=== PATIENT | male | born 1965 | race Caucasian/White ===

== ENCOUNTER 2021-05-07 16:35 | Emergency (ER) | payer MEDICAID, SELFPAY ==
[2021-05-07 16:35] VITALS: BP 169/118; PULSE 120; RESP 18; TEMP 35.7; O2SAT 98; BMI 26.6
--- NOTE | 2021-05-07 16:40 | ED.RN ---
PT DECIDED HE DID NOT WANT TO BE SEEN BY DR AFTER BEING CHECKED IN. LWBS [id number]
== END 2021-05-07 16:40 | disposition left against medical advice (07) ==
LOC: ED 17:10
DX: R69 Illness, unspecified (principal); Z53.21 Procedure and treatment not carried out due to patient leaving prior to being seen by health care provider

== ENCOUNTER 2021-05-11 10:04 | Emergency (ER) | payer MEDICAID, SELFPAY ==
[2021-05-11 10:05] VITALS: BP 177/106; PULSE 91; RESP 18; TEMP 36.2; O2SAT 96; BMI 30.8
--- NOTE | 2021-05-11 10:41 | RAD_ITS ---
STUDY: X-RAY - ORBITS REASON FOR EXAM: Male, 56 years old. This study is being performed as a clearance examination for exclusion of orbital metal, prior to the performance of an MRI examination. TECHNIQUE: 2 view(s) of the orbits were obtained. COMPARISON: None. FINDINGS: Normal bilateral orbits without a metallic orbital foreign body. Normal visualized facial bones. Normal paranasal sinuses. The soft tissue structures are unremarkable. RAD/Orbits for Foreign Body IMPRESSION: No demonstrated metallic orbital foreign body. The patient is cleared for an MRI examination. Electronically Signed: Brandan Santacruz MD at 11:05 EDT Tel , Service support ,
--- NOTE | 2021-05-11 11:06 | EDS_ITS ---
HPI History of Present Illness Chief Complaint: Eye Problem Informant: patient Narrative Narrative: Patient is a 56-year-old male who presents to the emergency department for suspected foreign body in his right eye. He states he was using a grinding wheel 3 months ago whenever he felt like something flew up and hit him in the eye. He has had pain, discharge since then. He has seen an regional sales associate and was put on eyedrops. He states he has been taking doxy cycline orally as well. He was using eyedrops and it was helping until it started to make it feel like it is worse now. He still feels like there is something in his eye. He is denying significant pain at this time but his eye is red and it has been since 3 months ago. He denies any headache, neck stiffness or fever/chills. No other complaints. PFSH PFSH Home Medications ciprofloxacin HCl 500 mg PO BID #14 tablet 05/18/14 [Rx Last Taken Unknown] oxycodone-acetaminophen 1 - 2 tab PO Q4H PRN PRN #12 tab 05/18/14 [Rx Last Taken Unknown] promethazine 25 mg PO Q6H PRN PRN #10 tablet 05/18/14 [Rx Last Taken Unknown] tamsulosin 0.4 mg PO DAILY 14 Days capsule 05/18/14 [Rx Last Taken Unknown] Allergy/AdvReac Type Severity Reaction Status Date / Time No Known Allergies Allergy Verified 05/11/21 10:07 Social History Smoking Status: Former smoker ROS ROS ED Constitutional Constitutional ED: Denies chills or fever(s) Eyes Eyes: Reports other Details: Right photophobia ENT ENT ED: Denies epistaxis or rhinorrhea Cardiovascular Cardiovascular: Denies chest pain or palpitations Respiratory/Chest Respiratory/Chest: Denies cough or dyspnea Gastrointestinal Gastrointestinal: Denies abdominal pain, diarrhea, nausea or vomiting Musculoskeletal Musculoskeletal: Denies back pain or neck pain Neurologic Neurologic: Denies dizziness, headache(s) or weakness EXAM Physical Exam Const Vital Signs: 05/11/21 10:05 Temperature 97.1 F L Temperature Source Temporal Pulse Rate 91 Respiratory Rate 18 Blood Pressure 177/106 H Blood Pressure Mean 129 Pulse Ox 96 Oxygen Delivery Method Room Air Positive well nourished and well developed General Appearance ED: well developed and NAD HEENT Reports normocephalic, head/scalp atraumatic and moist mucous membranes Eyes PERRL and EOMs intact bilaterally Neck supple Chest Wall inspection of chest normal Resp normal respiratory effort and clear to auscultation bilaterally Auscultation: Negative for rales, rhonchi or wheezes Cardio regular rate, regular rhythm and no murmurs GI normal to inspection, nondistended, normoactive bowel sounds and non-tender Palpation: soft; Negative for guarding or rebound tenderness present Back/Spine no CVA tenderness Extremity normal to inspection General Extremety ED: Negative for edema or tenderness General Extremity: Negative for edema Neuro Sensorium / Orientation: alert Motor Exam: strength 5/5 throughout Psych mental status grossly normal Skin no rashes or lesions noted MDM MDM MDM Narrative Medical decision making narrative: Patient presents to the emergency department for right eye pain. This was going on that she noted all for the past 3 months and has seen regional sales associate for this already. Patient is requesting an x-ray of the eye because this is the only thing that has not been done yet. He states that he does not want a fluorescein exam and only wants the x-ray performed. He does understand that a corneal abrasion/ulcer can be missed if we do not stain his eye but he is adamant on just the x-ray. Patient's x-ray did not reveal any acute foreign body. He says that he was supposed to been on eyedrops but felt like his make it worse so he stopped this. He needs to call his regional sales associate today for repeat examination and evaluation. He understands and is agreeable to plan. Discharged home in stable condition. All questions answered. Patient wanted to get the Covid vaccination and screen positive for this. He will receive the [employer] prior to being discharged. Discharge Plan Triage Chief Complaint: Eye Problem ED Provider: Thomas Goetz Dx/Rx/DC Orders Clinical Impression: Eye pain Instructions: Corneal Injury Prescriptions: No Action oxycodone-acetaminophen 1 TABLET tablet 1 - 2 tab PO Q4H PRN PRN (Reason: Pain) Qty: 12 RF: 0 tamsulosin 0.4 MG capsule 0.4 mg PO DAILY 14 Days RF: 0 promethazine 25 MG tablet 25 mg PO Q6H PRN PRN (Reason: Nausea) Qty: 10 RF: 0 ciprofloxacin HCl 500 MG tablet 500 mg PO BID Qty: 14 RF: 0 Primary Care Provider: Care Physician,No Primary Referrals: Faisal Robin MD [STAFF PHYSICIAN] - As soon as possible Care Physician,No Primary [Primary Care Provider] - Disposition Disposition: Home, Self Care
--- NOTE | 2021-05-11 13:06 | ED.RN ---
rn to bedside to d/c patient. pt states he wants covid vaccine before leaving, as offered. Dr. Goetz notified at this time.
--- NOTE | 2021-05-11 14:04 | ED.RN ---
CALLED PHARMACY AGAIN ABOUT THE COVID VACCINE.
[2021-05-11] MEDS: COVID-19 VAC,AD26(JANSSEN)/PF 0.5 ML SYRINGE IM (14:17)
[2021-05-11 14:20] VITALS: BP 155/86; PULSE 72; RESP 16; O2SAT 97
--- NOTE | 2021-05-11 14:30 | ED.RN ---
PT OBSERVED FOR SHOT TIME FOR 15 MIN NO REACTION NOTED BY THIS RN. PT D/C
== END 2021-05-11 14:30 | disposition home or self-care (01) ==
PROVIDERS: Emergency Provider Emergency Medicine
DX: H57.11 Ocular pain, right eye (principal); Z87.891 Personal history of nicotine dependence
CPT/HCPCS: 70030; 91303; 99283

== ENCOUNTER 2025-01-23 17:57 | Inpatient (IN) | payer MEDICAID, SELFPAY ==
[2025-01-23] VITALS (16 sets, daily range): BP systolic 91–161; BP diastolic 67–107; PULSE 86–120; RESP 14–25; TEMP 36.6–37.1; O2SAT 23–100; BMI 25.2; BMI 25.3
[2025-01-23] MEDS: Aspirin 81 MG TAB.CHEW 324 MG PO (18:13)
[2025-01-23] MEDS: TICAGRELOR 90 MG TABLET 180 MG PO (18:13)
[2025-01-23] MEDS: Heparin Injection (Vial) 5,000 UNIT/ML VIAL 5000 UNIT IV (18:13)
--- NOTE | 2025-01-23 18:13 | EKG12_ITS ---
Test Reason : CHEST PRESSURE Blood Pressure : */* mmHG Vent. Rate : 99 BPM Atrial Rate : 99 BPM P-R Int : 160 ms QRS Dur : 86 ms QT Int : 334 ms P-R-T Axes : 59 30 -16 degrees QTcB Int : 428 ms Critical Test Result: STEMI Normal sinus rhythm ST elevation consider anterolateral injury or acute infarct ACUTE [place] / STEMI Abnormal ECG Confirmed by REMBERTO MAY, EMILY ([id number]), primer expeditor and drier JOSE PAUL ([id number]) on 01/28/2025 9:03:46 AM Referred By: Gómez Escobar Confirmed By: EMILY SR MD
--- NOTE | 2025-01-23 18:17 | EDS_ITS ---
HPI History of Present Illness Chief Complaint: Chest Pain Informant: patient Narrative Narrative: Presents with chest tightness 2 hours prior to arrival bilateral arm pain. Patient states he finished mowing the lawn and then ate food. He felt fine symptoms started at rest. No history of similar. Denies diabetes hypertension or hyperlipidemia. No history of heart disease. No heart caths in the past. Remote tobacco quit 5 years ago. Nausea vomiting at home states pain was 10 at home on arrival it was 5 out of 10. Denies any history of gastric ulcers. Denies any recent rectal bleeding. Prior similar symptoms: No PFSH PFSH Medical History Hepatitis C Home Medications ?Medication ?Instructions ?Recorded ?Last Taken ?Type NK 01/23/25 Unknown History Allergy/AdvReac Type Severity Reaction Status Date / Time No Known Allergies Allergy Verified 01/23/25 17:58 Family History Father CAD (coronary artery disease) Heart disease Hypertension Myocardial infarction Brother Myocardial infarction Hypertension Heart disease CAD (coronary artery disease) Mother No problems noted. Surgical History H/O skin graft History of cholecystectomy Social History household members: none Smoking Status: Former smoker how long ago did patient quit smoking: Quit ~ 5 yrs prior, smoked ~ 1/2 ppd since youth until quit. alcohol intake: former details: Notes previous intermittent EtOH use, not heavy, currently no drinking. substance use type: other details: Denies substance abuse but chart reported history of Hepatitis C. ROS ROS ED Constitutional Constitutional ED: Reports sweats; Denies chills or fever(s) ENT ENT ED: Denies sore throat Cardiovascular Cardiovascular: Reports chest pain; Denies leg edema, palpitations or racing heartbeat Respiratory/Chest Respiratory/Chest: Denies cough, dyspnea or dyspnea on exertion Gastrointestinal Gastrointestinal: Reports nausea and vomiting; Denies abdominal pain or diarrhea Genitourinary Genitourinary ED: Denies dysuria, hematuria or urinary frequency Musculoskeletal Musculoskeletal: Denies back pain, extremity pain or neck pain Integumentary Denies rash or wounds Neurologic Neurologic: Reports paresthesias; Denies headache(s) or weakness EXAM Physical Exam Const Vital Signs: 01/23/25 17:57 01/23/25 18:09 01/23/25 18:09 Temperature 98.7 F Temperature Source Oral Pulse Rate 102 H Respiratory Rate 18 17 Respiratory Effort Normal Respiratory Pattern Normal Blood Pressure 161/107 H 149/104 H Blood Pressure Mean 125 Pulse Ox 98 Oxygen Delivery Method Room Air 01/23/25 18:29 01/23/25 18:34 01/23/25 18:38 Temperature 98.8 F Temperature Source Pulse Rate 118 H 113 H Respiratory Rate 20 H 18 Respiratory Effort Respiratory Pattern Blood Pressure 147/107 H 147/107 H Blood Pressure Mean 120 120 Pulse Ox 98 100 Oxygen Delivery Method Room Air Room Air Positive well nourished and well developed General Appearance ED: well developed and NAD HEENT Reports moist mucous membranes normocephalic and atraumatic Eyes General Eye ED: Yes normal appearance of both eyes Neck full ROM Chest Wall Chest: Negative for tenderness Resp normal respiratory effort and normal air movement Effort and Inspection: symmetric chest movement; Negative for respiratory distress Cardio regular rhythm and no murmurs Rate: tachycardic Peripheral Pulses: pulses 2+ throughout GI normal to inspection, nondistended, normoactive bowel sounds and non-tender Palpation: Negative for guarding or rebound tenderness present Extremity normal to inspection General Extremety ED: Negative for edema or tenderness General Extremity: Negative for edema Neuro oriented x3 and no sensory deficits noted Sensorium / Orientation: awake and alert Skin no rashes or lesions noted and no wounds MDM MDM MDM Narrative Medical decision making narrative: Interventions / MDM: Differential diagnosis: STEMI, chest pain Diagnosis considered but do not suspect: N/A My EKG interpretation: Sinus rate of 99, ST elevation anterior lateral leads with reciprocal ST depressions in inferior leads. Imaging independently reviewed and interpreted by myself: 1 view chest x-ray: Ordered however not performed in the ED. External documents reviewed: N/A Test considered but not ordered:N/A ED course: EKG was given to me concerning STEMI. Patient was evaluated. Aspirin Brilinta heparin ordered. AP defibrillator pads were placed. Discussed immediately with STEMI floor and wall applier liquid Dr. Escobar. Images were sent to him of the EKG. Agrees with plan. Show Zofran fentanyl given for symptom control. Labs are ordered and pending. Chest x-ray ordered however not performed in the ED. Hospitalist Dr. Shukla was in the department seeing the patient in the same time. Patient taken to the [facility]. Patient will be admitted ICU after heart cath eterization. 1850: Creatinine returning at 0.88. Glucose 215. Troponin 39. Re-evaluation: stable Disposition discussed with patient/family/significant other: Patient Case discussed with consulting clinician: STEMI floor and wall applier liquid, hospitalist This note was generated with [employer] dictation software. It may contain incorrect words, spelling, and punctuation that were not noted in checking the note before signing. Lab Data Labs: Laboratory Results - last 24 hr 01/23/25 01/23/25 18:10 18:30 WBC 15.1 H RBC 5.92 Hgb 18.3 H* Hct 51.3 MCV 86.7 MCH 30.9 MCHC 35.7 RDW Std Deviation 39.5 RDW Coeff of Tree 12.6 Plt Count 217 MPV 9.3 Immature Gran % (Auto) 0.300 Neut % (Auto) 83.1 H Lymph % (Auto) 12.1 L [place] % (Auto) 3.5 Eos % (Auto) 0.5 Baso % (Auto) 0.5 Absolute Neuts (auto) 12.5 H Absolute Lymphs (auto) 1.83 Nucleated RBC % 0 PT 13.7 INR 1.0 APTT 31.3 Sodium 139 Potassium 4.0 Chloride 101 Carbon Dioxide 26.7 Anion Gap 12 BUN 17 Creatinine 0.88 Estim Creat Clear Calc 92.62 Est GFR (MDRD) Non-Af 100 BUN/Creatinine Ratio 19.8 Glucose 215 H Calcium 9.6 Magnesium 1.9 Troponin T High Sens 39 H Critical Care Time Critical Care Time: Yes Critical care time (excluding procedures): 30-74 minutes, Discussing w/Patient &/or Family/Black Off Worker, Discussing w/Consultants, Performing Direct Patient Care at Bedside and - (31 minutes) Discharge Plan Dx/Rx/DC Orders Clinical Impression: STEMI (ST elevation myocardial infarction), Chest pain, Nausea & vomiting Disposition Disposition: [facility] Discharge Date/Time: 01/23/25 18:53
[2025-01-23] MEDS: fentaNYL 100 MCG/2 ML Ampul 50 MCG IV (18:22)
[2025-01-23] MEDS: Ondansetron 4 MG/2 ML Vial IV ×2 (18:22→21:26)
--- NOTE | 2025-01-23 18:23 | HP.PCM.HOS_ITS ---
HPI - General General Date of Admission: 01/23/25 Date of Service: 01/23/25 Chief Complaint: Chest pain, N/V, LH/Dizziness, diaphoresis HPI Narrative The patient is a 59 y/o M w/ PMHx: BPH without obstructive pathology, PFSH Home Medications ?Medication ?Instructions ?Recorded ?Last Taken ?Type ciprofloxacin HCl 500 mg tablet 500 mg PO BID ##14 02/23 Unknown Rx oxycodone-acetaminophen 5 mg-325 1 - 2 tab PO Q4H PRN PRN Pain #12 05/18/14 Unknown Rx mg tablet tabs promethazine 25 mg tablet 25 mg PO Q6H PRN PRN Nausea ##10 05/18/14 Unknown Rx tamsulosin 0.4 mg capsule 0.4 mg PO DAILY 14 days 02/23 Unknown Rx Allergy/AdvReac Type Severity Reaction Status Date / Time No Known Allergies Allergy Verified 01/23/25 17:58 Social History Smoking Status: Former smoker Vital Signs Vital Signs Vital Signs: 01/23/25 17:57 01/23/25 18:09 01/23/25 18:09 Temperature 98.7 F Temperature Source Oral Pulse Rate 102 H Respiratory Rate 18 17 Respiratory Effort Normal Respiratory Pattern Normal Blood Pressure 161/107 H 149/104 H Blood Pressure Mean 125 Pulse Ox 98 Oxygen Delivery Method Room Air Weight Weight: 170 lb 14.4 oz Body Mass Index (BMI) 25.2 Results Lab / Micro Data 01/23/25 18:10 01/23/25 18:10
--- NOTE | 2025-01-23 18:23 | PCM.HP.STD ---
HPI - General General Date of Admission: 01/23/25 Date of Service: 01/23/25 Chief Complaint: Chest pain, N/V, LH/Dizziness, diaphoresis HPI Narrative The patient is a 59 y/o M w/ PMHx: Chart reported history of Hepatitis C (unclear etiology, denies history of substance abuse), BPH without obstructive pathology, Former tobacco use, Schizophrenia unclear type not on medication who presents to the [facility] ED on 01/23/25 with history of onset approximately 2 hours prior to arrival midsternal nonradiating chest discomfort described as a heaviness/pressure-like in sensation with associated nausea, bout of emesis, diaphoresis, dyspnea as well as lightheaded and dizziness initially 10 out of 10 in severity eventually prompting ED transition for evaluation and upon arrival noted and slightly decreased to 5 out of 10 in severity. Patient reported a family underlying cardiac history. He notes that when this happened he had just been sitting down to eat but prior to that he had been outside mowing on a riding mower. During evaluation repeat question for severity and patient reported his discomfort down to 3 out of 10 in severity. In the ED workup included T98.7, heart 102, BP 161/107, respiratory rate 18, 98% room air, pending CBC, coags, BMP, troponin, chest x-ray upon evaluation. In the ED EKG reviewed with replanter following STEMI alert initiation upon arrival. [facility] Medical History Schizophrenia Former tobacco use Hepatitis C Home Medications ?Medication ?Instructions ?Recorded ?Last Taken ?Type NK 01/23/25 Unknown History Allergy/AdvReac Type Severity Reaction Status Date / Time No Known Allergies Allergy Verified 01/23/25 17:58 Family History (Updated 01/23/25 @ 18:[address] Dalia Shukla MD) Father CAD (coronary artery disease) Heart disease Hypertension Myocardial infarction Brother Myocardial infarction Hypertension Heart disease CAD (coronary artery disease) Mother No problems noted. Surgical History History of tonsillectomy and adenoidectomy History of appendectomy H/O skin graft History of cholecystectomy Social History (Updated 01/23/25 @ 18:[address] Dalia Shukla MD) household members: none Smoking Status: Former smoker how long ago did patient quit smoking: Quit ~ 5 yrs prior, smoked ~ 1/2 ppd since youth until quit. alcohol intake: former details: Notes previous intermittent EtOH use, not heavy, currently no drinking. substance use type: other details: Denies substance abuse but chart reported history of Hepatitis C. ROS ROS Narrative Admission Review of Systems: CONSTITUTIONAL: No weight loss, fever, chills, + weakness or fatigue. HEENT: + Lightheadedness, dizziness. Eyes: No visual loss, blurred vision, double vision or yellow sclerae. Ears, Nose, Throat: No hearing loss, sneezing, congestion, runny nose or sore throat. SKIN: No rash or itching, lesions, wounds. CARDIOVASCULAR: + Chest pain, lightheadedness, dizziness. No palpitations, edema, orthopnea, syncopal events. RESPIRATORY: + Dyspnea. No cough or marked sputum, wheezing, hemoptysis. GASTROINTESTINAL: + Anorexia, nausea, vomiting. No diarrhea, abdominal pain, melena, BRBPR. GENITOURINARY: No dysuria, frequency, urgency or retention. NEUROLOGICAL: + Lightheadedness, dizziness. No headache, syncope, paralysis, ataxia, numbness or tingling in the extremities, focal weakness, change in bowel or bladder control, seizure. MUSCULOSKELETAL: + muscle, back pain, joint pain or stiffness. HEMATOLOGIC: No anemia, bleeding or bruising. LYMPHATICS: No enlarged nodes. No history of splenectomy. PSYCHIATRIC: + History of schizophrenia. ENDOCRINOLOGIC: No reports of sweating, cold or heat intolerance. No polyuria or polydipsia. ALLERGIES: No history of asthma, hives, eczema or rhinitis. Vital Signs Vital Signs Vital Signs: 01/23/25 17:57 01/23/25 18:09 01/23/25 18:09 Temperature 98.7 F Temperature Source Oral Pulse Rate 102 H Respiratory Rate 18 17 Respiratory Effort Normal Respiratory Pattern Normal Blood Pressure 161/107 H 149/104 H Blood Pressure Mean 125 Pulse Ox 98 Oxygen Delivery Method Room Air Weight Weight: 170 lb 14.4 oz Body Mass Index (BMI) 25.2 Physical Exam Narrative Physical Examination: General: Awake, alert, oriented x 3 and cooperative, seated upright in the ED bed, mildly tangential discussions but able to focus, currently following evaluation pain now down to 3 out of 10, midsternal pressure-like in sensation. Skin: Normal color, normal turgor, no icterus, no cyanosis except occasional stage ecchymoses, abrasion. HEENT: AT/NC, EOMI, PERRLA, mildly dry MM, endentulous, no carotid bruits or JVD noted. Lungs: Mildly diminished, greater bases, mildly increased respiratory rate but no distress, no rales, ronchi or wheezing. Heart: Mildly tachycardic with regular rhythm; no gallop, rub audible. Abdomen: Soft, NTTP, ND, distant normal BS, no markedly appreciated HSM. Extremities: No cyanosis, clubbing, or edema. Neurological: Patient awake, alert, oriented as noted, cognitive function suspect baseline intact; pupils equally reactive to light and accommodation, cranial nerves grossly normal, moving all 4 extremities, no focal deficits, strength moderately to severely global decreased given acute presentation. Psychiatric: Affect appears fatigued, notes chest discomfort is improving, no acute evidence of depressive or anxiety feelings but does have underlying schizophrenic diagnosis per family. Results Lab / Micro Data 01/23/25 18:10 01/23/25 18:10 Assessment & Plan Assessment/Plan (1) STEMI (ST elevation myocardial infarction): PLAN: Plan The patient is a 59 y/o M w/ PMHx: Chart reported history of Hepatitis C (unclear etiology, denies history of substance abuse), BPH without obstructive pathology, Former tobacco use, Schizophrenia unclear type not on medication who presents to the [facility] ED on 01/23/25 with history of onset approximately 2 hours prior to arrival midsternal nonradiating chest discomfort described as a heaviness/pressure-like in sensation with associated nausea, bout of emesis, diaphoresis, dyspnea as well as lightheaded and dizziness initially 10 out of 10 in severity eventually prompting ED transition for evaluation and upon arrival noted and slightly decreased to 5 out of 10 in severity. #1. Chest Pain w/ Acute STEMI: EKG in ED w/ anterolateral ST elevations, CXR and troponin pending upon evaluation. Will transition from the ED to cardiac catheterization lab given STEMI presentation and following this we will transition to the ICU. Will maintain on a monitored bed, continue serial cardiac enzymes and EKGs. Obtain magnesium level upon admission. Patient administered heparin load, Brilinta load and full-strength aspirin in the ED. Continue medical management w/ asa, Brilinta, high-dose statin w/ AM FLP. Will defer beta-jamie therapy/YOHANNES inhibitor decision to cardiology discretion. ECHO requested. Cardiology consulted as noted. #2. Elevated BP without hypertensive diagnosis: Patient with elevated BP upon arrival, denies history, previous trending with occasional point levels elevated, will defer decision of beta-jamie/YOHANNES inhibitor therapies to cardiology discretion, as needed IV hydralazine in the interim. #3. Schizophrenia, unclear type: Patient is not on any medication, denied history which was eventually obtained per his mother and father. Given that the patient is not necessarily harm to self this may be a long-term situation where he has not been on medication. Would benefit from follow-up and outpatient evaluation #4. Chart reported history hepatitis C: Unclear etiology, patient denying substance abuse, given schizophrenia certainly still could have had a substance abuse history remotely, will attempt to see if there are any labs previously denoting hepatitis C status. If not may require testing to assure appropriate follow-up. #5. BPH without obstructive pathology: Will continue Flomax regimen but clarifying if this is still ongoing as patient is unsure of his medications. #6. Former tobacco use: Encourage continued tobacco cessation. #7. DVT prophylaxis: Lovenox to begin in AM. #8. CODE status: Patient does not have healthcare palva turning or living will in place but notes his mother and father would be his medical decision makers if necessary. Discussed CODE status at length including difference between FULL code, DNR-CCA and DNR-CC status. Following discussions about the differences in these status, requested Full Code status. Charges/Coding Visit Charges Inpatient E&M: 44667 Init Hosp L3
[2025-01-23 18:31] LABS: Absolute Lymphocyte Count 1.83 X10^3/uL (0.83-4.51); Absolute Neutrophil Count 12.5 X10^3/uL (2.0-7.7); Basophil# 0.07 X10^3/uL; Basophil% 0.5 % (0-1); Eosinophil# 0.07 X10^3/uL; Eosinophils% 0.5 % (0-5); Hematocrit 51.3 % (40-54); Hemoglobin 18.3 g/dL (13.0-16.5); Lymphocyte # 1.83 X10^3/ul (0.83-4.51); Lymphocyte % 12.1 % (19-41); Mean Corp Hgb Conc 35.7 g/dL (32-36); Mean Corpuscular Hgb 30.9 pg (27.0-32.0); Mean Corpuscular Volume 86.7 fL (80-94); Mean Platelet Vol. 9.3 fl (6.2-12.0); Monocyte# 0.53 X10^3/uL; Monocyte% 3.5 % (0-10); NRBC Flagged by Analyzer 0 % (0-5); Neutrophil # 12.54 X10^3/uL (2.7-7.7); Neutrophil % 83.1 % (47-70); Platelet Count 217 K/mm3 (150-450); RBC Distribution Width CV 12.6 % (11.6-14.6); RBC Distribution Width SD 39.5 fl (35.1-43.9); Red Blood Count 5.92 M/mm3 (4.6-6.2)
[2025-01-23 18:47] LABS: Anion Gap 12 (5-15); BUN 17 mg/dL (4-19); BUN/Creat Ratio 19.8 RATIO (10-20); Calcium,Total 9.6 mg/dL (7.6-11.0); Carbon Dioxide 26.7 mmol/L (21.0-32.0); Chloride 101 mmol/L (98-108); Creatinine, Serum 0.88 mg/dL (0.70-1.20); EST Glomerular Filtration Rate 100 (>60); Estimated Creatinine Clearance 92.62 ml/min (50-250); Glucose 215 mg/dL (70-99); Sodium Level 139 mmol/L (133-145); Troponin T High Sensitivity 39 ng/L (<=22)
[2025-01-23 18:50] LABS: Prothrombin Time (Protime)PT. 13.7 SECONDS (11.7-14.9)
[2025-01-23 18:51] LABS: Partial Thromboplast Time 31.3 Seconds (24.1-36.2)
[2025-01-23 19:18] LABS: Magnesium 1.9 mg/dL (1.5-2.2)
[2025-01-23 19:21] LABS: White Blood Count 15.1 K/mm3 (4.4-11.0)
--- NOTE | 2025-01-23 20:08 | CON.PCM.CA_ITS ---
Assessment & Plan Assessment/Plan (1) STEMI (ST elevation myocardial infarction): QUALIFIERS: Involved coronary artery: LAD coronary artery Q ualified Code(s): I21.02 - ST elevation (STEMI) myocardial infarction involving left anterior descending coronary artery PLAN: Treated with drug-eluting stent to the LAD. Patient needs staged PCI of the RCA. He has tortuous LAD and RCA. We will keep him on aspirin, Brilinta, statin. His blood pressure is low and so we will hold off on YOHANNES inhibitors and beta-blockers at this time and will add as tolerated. Patient received 40 mg IV Lasix in the [facility]. He may need an additional dose in the morning. He does have an EF of around 30% by LV gram. At this time we will see if his blood pressure improves. He may end up requiring low-dose Levophed overnight if his blood pressure continues to remain low. HPI Consult Data Date of Consult: 01/23/25 HPI Narrative Reason for Consultation: STEMI HPI Narrative: ISAS YEH, is a 59 M who presents with chest pain. His EKG was indicative of anterior ST elevation SC and a STEMI alert was called. Patient was brought emergently to the cardiac [facility] and underwent coronary angiography which revealed 100% occlusion of the proximal LAD that was treated with thrombectomy and drug-eluting stent placement. Patient had high LVEDP and also was hypoxic on oxygen by nasal cannula. He was given 40 mg IV Lasix in the [facility]. He was given 2 boluses of Integrilin and was started on an Integrilin drip. He was noted to have hemoptysis and so the Integrilin drip has been stopped. His chest pain has improved. He is being admitted to the CCU for further management. [facility] Medical History Hepatitis C Home Medications ?Medication ?Instructions ?Recorded ?Last Taken ?Type NK 01/23/25 Unknown History Allergy/AdvReac Type Severity Reaction Status Date / Time No Known Allergies Allergy Verified 01/23/25 17:58 Family History Father CAD (coronary artery disease) Heart disease Hypertension Myocardial infarction Brother Myocardial infarction Hypertension Heart disease CAD (coronary artery disease) Mother No problems noted. Surgical History H/O skin graft History of cholecystectomy Social History household members: none Smoking Status: Former smoker how long ago did patient quit smoking: Quit ~ 5 yrs prior, smoked ~ 1/2 ppd since youth until quit. alcohol intake: former details: Notes previous intermittent EtOH use, not heavy, currently no drinking. substance use type: other details: Denies substance abuse but chart reported history of Hepatitis C. Physical Exam Const alert and oriented x3 HEENT normocephalic Eyes no scleral icterus Resp normal respiratory effort Cardio regular rate Skin no rashes or lesions noted Risk Stratification Risk Stratification Applicable: No Charges/Coding Visit Charges Inpatient E&M: 50162 Init Hosp L2 Objective Data Vital Signs: Vital Signs Temp Pulse Resp BP Pulse Ox O2 Del Method 98.8 F 113 H 18 147/107 H 100 Room Air 01/23/25 18:38 01/23/25 18:38 01/23/25 18:38 01/23/25 18:38 01/23/25 18:38 01/23/25 18:34 Oxygen Delivery Method Room Air Weight: 170 lb 14.4 oz Body Mass Index (BMI) 25.2 Lab / Micro Data 01/23/25 18:10 01/23/25 18:10 Labs: Laboratory Results - last 24 hr 01/23/25 18:10: WBC 15.1 H, RBC 5.92, Hgb 18.3 H*, Hct 51.3, MCV 86.7, MCH 30.9, MCHC 35.7, RDW Std Deviation 39.5, RDW Coeff of Tree 12.6, Plt Count 217, MPV 9.3, Immature Gran % (Auto) 0.300, Neut % (Auto) 83.1 H, Lymph % (Auto) 12.1 L, [place] % (Auto) 3.5, Eos % (Auto) 0.5, Baso % (Auto) 0.5, Absolute Neuts (auto) 12.5 H, Absolute Lymphs (auto) 1.83, Nucleated RBC % 0, PT 13.7, INR 1.0, APTT 31.3, Sodium 139, Potassium 4.0, Chloride 101, Carbon Dioxide 26.7, Anion Gap 12, BUN 17, Creatinine 0.88, Estim Creat Clear Calc 92.62, Est GFR (MDRD) Non-Af 100, BUN/Creatinine Ratio 19.8, Glucose 215 H, Calcium 9.6, Troponin T High Sens 39 H 01/23/25 18:30: Magnesium 1.9 Cardiology Labs/Tests 01/23/25 18:10: WBC 15.1 H, RBC 5.92, Hgb 18.3 H*, Hct 51.3, MCV 86.7, MCH 30.9, MCHC 35.7, Plt Count 217, MPV 9.3, Immature Gran % (Auto) 0.300, Neut % (Auto) 83.1 H, Lymph % (Auto) 12.1 L, [place] % (Auto) 3.5, Eos % (Auto) 0.5, Baso % (Auto) 0.5, Absolute Neuts (auto) 12.5 H, Nucleated RBC % 0, PT 13.7, INR 1.0, APTT 31.3, Sodium 139, Potassium 4.0, Chloride 101, Carbon Dioxide 26.7, Anion Gap 12, BUN 17, Creatinine 0.88, Est GFR (MDRD) Non-Af 100, BUN/Creatinine Ratio 19.8, Glucose 215 H, Calcium 9.6 01/23/25 18:30: Magnesium 1.9 Rhythm: EKG: ECHO: Stress Test: Cardiac Cath: PCI: CT Surgery: Holter monitor: EPS: PPM: CXR: Chest CT Scan:
--- NOTE | 2025-01-23 20:34 | EKG12_ITS ---
Test Reason : AM EKG Blood Pressure : */* mmHG Vent. Rate : 104 BPM Atrial Rate : 104 BPM P-R Int : 164 ms QRS Dur : 86 ms QT Int : 320 ms P-R-T Axes : 69 75 112 degrees QTcB Int : 420 ms Critical Test Result: STEMI Sinus tachycardia with frequent Premature ventricular complexes Anteroseptal infarct , possibly acute ACUTE [place] / STEMI Abnormal ECG Confirmed by REMBERTO MAY, EMILY ([id number]), metropolitan editor JOSE PAUL ([id number]) on 01/28/2025 9:35:48 AM Referred By: Gómez Escobar Confirmed By: EMILY SR MD
--- NOTE | 2025-01-23 20:34 | ECHOCS_ITS ---
Reason For Study Reason For Study: STEMI Procedure This was a 2D Doppler, Color Flow transthoracic echocardiogram. Contrast injection was performed. Exam performed portable in ICU/CCU. Left Ventricle Normal LV size. The estimated ejection fraction is 25-30 %. There is evidence of diastolic dysfunction. Hypokinesis of the apex and anterior wall. Right Ventricle Normal RV size. Normal systolic function. Atria The left and right atria are normal. No doppler evidence for ASD. Mitral Valve There is no mitral valve stenosis. No mitral valve insufficiency. Tricuspid Valve There is no tricuspid stenosis. Unable to estimate RV systolic pressure due to inadequate jet, pulmonary artery pressure probably normal. Aortic Valve Trisinus/trileaflet aortic valve. Aortic sclerosis, no stenosis. No aortic valve insufficiency. Pulmonic Valve There is no pulmonic valvular stenosis. No pulmonic valve insufficiency. Great Vessels Normal sized aortic root. Pericardium/Pleural No pericardial effusion. Medication Diluted definity 2ml given slow IV push to enhance endocardial definition. MMode/2D Measurements & Calculations LVIDd: 4.3 cm IVSd: 1.2 cm Ao root diam: 3.3 cm LVIDs: 2.7 cm LVPWd: 1.1 cm RVDd: 2.9 cm FS: 37.9 % LAV(MOD-bp): 34.4 ml LVAd ap4: 39.7 cm2 LVAd ap2: 36.0 cm2 LAV(MOD-bp) Indexed: 17.8 ml/m2 LVLd ap4: 9.6 cm LVLd ap2: 8.9 cm LAV(MOD-sp2): 42.4 ml EDV(MOD-sp4): 132.7 ml EDV(MOD-sp2): 121.2 ml LAV(MOD-sp4): 27.1 ml EDV(sp4-el): 139.7 ml EDV(sp2-el): 124.2 ml LVAs ap4: 28.4 cm2 LVAs ap2: 25.2 cm2 LVLs ap4: 8.2 cm LVLs ap2: 7.5 cm ESV(MOD-sp4): 79.3 ml ESV(MOD-sp2): 68.9 ml ESV(sp4-el): 82.8 ml ESV(sp2-el): 72.0 ml EF(MOD-sp4): 40.2 % EF(MOD-sp2): 43.1 % EF(sp4-el): 40.7 % SV(MOD-sp4): 53.4 ml SV(MOD-sp2): 52.3 ml SV(sp4-el): 56.9 ml SI(MOD-sp4): 27.6 ml/m2 SI(MOD-sp2): 27.1 ml/m2 LA A4 area: 12.2 cm2 LA dimension(2D): 3.9 cm RA A4 area: 10.6 cm2 TAPSE: 1.2 cm Time Measurements MV dec time: 0.18 sec Doppler Measurements & Calculations MV E max darrius: 78.1 cm/sec Lat Peak E' Darrius: 16.3 cm/sec Med Peak E' Darrius: 8.0 cm/sec MV A max darrius: 84.5 cm/sec E/E' lat: 4.8 E/E' med: 9.8 MV E/A: 0.92 MV V2 max: 80.9 cm/sec MV dec slope: 443.4 cm/sec2 Ao V2 max: 111.0 cm/sec MV max P.6 mmHg Ao max P.9 mmHg MV V2 mean: 54.0 cm/sec MV mean P.3 mmHg MV V2 VTI: 13.7 cm LV V1 max: 105.3 cm/sec PA V2 max: 88.3 cm/sec LV V1 max P.4 mmHg ECHO/Echo Complete W/ Contrast Interpretation Summary The estimated ejection fraction is 25-30 %. Hypokinesis of the apex and anterior wall There is evidence of diastolic dysfunction. Ordering Physician: Dalia Shukla Referring Physician: Gómez Escobar Performed By: Kyle Prasad, MIA
[2025-01-23] MEDS: TICAGRELOR 90 MG TABLET PO (21:10)
[2025-01-23] MEDS: 0.9% Normal Saline (1000mL) 1,000 ML 100 ML IV (21:10)
[2025-01-23] MEDS: Atorvastatin Calcium 80 MG Tablet PO (21:11)
[2025-01-23] MEDS: MELATONIN 3 MG TABLET PO (21:26)
[2025-01-23 21:51] LABS: Troponin T High Sens 2 HR 5050 ng/L (<=22)
[2025-01-24] VITALS (28 sets, daily range): BP systolic 90–124; BP diastolic 55–96; PULSE 21–112; RESP 14–24; TEMP 36.4–36.9; O2SAT 93–98; BMI 25.3
[2025-01-24 01:14] LABS: Troponin T High Sens 4 HR > 10000 ng/L (<=22)
[2025-01-24] MEDS: proCHLORPERazine 10 MG/2 ML Vial 5 MG IV (02:26)
[2025-01-24 05:32] LABS: Absolute Lymphocyte Count 1.29 X10^3/uL (0.83-4.51); Absolute Neutrophil Count 15.2 X10^3/uL (2.0-7.7); Basophil# 0.02 X10^3/uL; Basophil% 0.1 % (0-1); Eosinophil# 0.01 X10^3/uL; Eosinophils% 0.1 % (0-5); Hematocrit 44.2 % (40-54); Lymphocyte # 1.29 X10^3/ul (0.83-4.51); Lymphocyte % 7.4 % (19-41); Mean Corp Hgb Conc 36.2 g/dL (32-36); Mean Corpuscular Hgb 31.3 pg (27.0-32.0); Mean Corpuscular Volume 86.3 fL (80-94); Mean Platelet Vol. 9.1 fl (6.2-12.0); Monocyte% 4.6 % (0-10); NRBC Flagged by Analyzer 0 % (0-5); Neutrophil # 15.21 X10^3/uL (2.7-7.7); Neutrophil % 87.5 % (47-70); Platelet Count 209 K/mm3 (150-450); RBC Distribution Width CV 12.6 % (11.6-14.6); RBC Distribution Width SD 39.2 fl (35.1-43.9); Red Blood Count 5.12 M/mm3 (4.6-6.2); White Blood Count 17.4 K/mm3 (4.4-11.0)
[2025-01-24 05:49] LABS: ALB/GLOB Ratio 1.5 RATIO (0.9-2.4); AST(SGOT) 658 U/L (<=37); Alanine Aminotransfer ALT/SGPT 113 U/L (<=46); Albumin, Serum 3.7 g/dL (3.5-5.0); Alkaline Phosphatase 83 U/L (40-129); Anion Gap 12 (5-15); BUN 18 mg/dL (4-19); BUN/Creat Ratio 22.5 RATIO (10-20); Calcium,Total 8.8 mg/dL (7.6-11.0); Carbon Dioxide 22.7 mmol/L (21.0-32.0); Chloride 106 mmol/L (98-108); Cholesterol 166 mg/dL (<=200); Creatinine, Serum 0.82 mg/dL (0.70-1.20); EST Glomerular Filtration Rate 103 (>60); Estimated Creatinine Clearance 99.39 ml/min (50-250); Globulin 2.5 g/dL (2.2-4.2); Glucose 199 mg/dL (70-99); High Density Lipoprotein 48 mg/dL; Low Density Lipoprotein Calc. 100 mg/dL; Potassium 3.9 mmol/L (3.3-5.1); Protein, Total 6.2 g/dL (5.9-8.4); Sodium Level 141 mmol/L (133-145); Total Bilirubin 1.01 mg/dL (0.00-1.30); Triglycerides 92 mg/dL; Very Low Density Lipoprotein 18 mg/dL (5-40); cholesterol:hdl ratio screen 3.47
--- NOTE | 2025-01-24 07:30 | PCM.PN.HOSP ---
Reason for Visit Reason for Visit: Diagnoses ST elevation (STEMI) myocardial infarction involving left anterior descending coronary artery (01/23/25) ST elevation (STEMI) myocardial infarction of unspecified site (01/23/25) Objective Data Objective Data Vital Signs: Vital Signs Temp Pulse Resp BP Pulse Ox O2 Del Method 98.4 F 97 16 100/73 96 Room Air 01/24/25 00:00 01/24/25 07:00 01/24/25 07:00 01/24/25 07:00 01/24/25 07:00 01/24/25 07:00 Oxygen Delivery Method Room Air Weight: 171 lb 8.314 oz Body Mass Index (BMI) 25.3 Intake & Output: Intake and Output for Last 24 Hours 01/22/25 01/23/25 01/24/25 23:59 23:59 23:59 Intake Total 120 / 120 Output Total 1300 / 1750 450 / 450 Balance -1300 / -1750 -330 / -330 Lab / Micro Data 01/24/25 05:17 01/24/25 05:17 Labs: Laboratory Results - last 24 hr 01/23/25 18:10: WBC 15.1 H, RBC 5.92, Hgb 18.3 H*, Hct 51.3, MCV 86.7, MCH 30.9, MCHC 35.7, RDW Std Deviation 39.5, RDW Coeff of Tree 12.6, Plt Count 217, MPV 9.3, Immature Gran % (Auto) 0.300, Neut % (Auto) 83.1 H, Lymph % (Auto) 12.1 L, [place] % (Auto) 3.5, Eos % (Auto) 0.5, Baso % (Auto) 0.5, Absolute Neuts (auto) 12.5 H, Absolute Lymphs (auto) 1.83, Nucleated RBC % 0, PT 13.7, INR 1.0, APTT 31.3, Sodium 139, Potassium 4.0, Chloride 101, Carbon Dioxide 26.7, Anion Gap 12, BUN 17, Creatinine 0.88, Estim Creat Clear Calc 92.62, Est GFR (MDRD) Non-Af 100, BUN/Creatinine Ratio 19.8, Glucose 215 H, Calcium 9.6, Troponin T High Sens 39 H 01/23/25 18:30: Magnesium 1.9 01/23/25 20:40: Troponin T Hi Sens 2 Hr 5050 H* 01/24/25 00:31: Troponin T Hi Sens 4Hr > 31152 H* 01/24/25 05:17: WBC 17.4 H, RBC 5.12, Hgb 16.0, Hct 44.2, MCV 86.3, MCH 31.3, MCHC 36.2 H, RDW Std Deviation 39.2, RDW Coeff of Tree 12.6, Plt Count 209, MPV 9.1, Immature Gran % (Auto) 0.300, Neut % (Auto) 87.5 H, Lymph % (Auto) 7.4 L, [place] % (Auto) 4.6, Eos % (Auto) 0.1, Baso % (Auto) 0.1, Absolute Neuts (auto) 15.2 H, Absolute Lymphs (auto) 1.29, Nucleated RBC % 0, Sodium 141, Potassium 3.9, Chloride 106, Carbon Dioxide 22.7, Anion Gap 12, BUN 18, Creatinine 0.82, Estim Creat Clear Calc 99.39, Est GFR (MDRD) Non-Af 103, BUN/Creatinine Ratio 22.5 H, Glucose 199 H, Calcium 8.8, Total Bilirubin 1.01, AST 658 H, ALT 113 H, Alkaline Phosphatase 83, Total Protein 6.2, Albumin 3.7, Globulin 2.5, Albumin/Globulin Ratio 1.5, Triglycerides 92, Cholesterol 166, LDL Cholesterol, Calc 100, VLDL Cholesterol 18, HDL Cholesterol 48, Cholesterol/HDL Ratio 3.47 Physical Exam Narrative Seen and examined. Patient denies any prior history of [place]. He said he used to take a lot of sugar in oatmeal and felt pain over bilateral feet and lower legs then he decreased his sugar intake. Patient's father has history of CAD/[place]. Twelve-lead EKG reviewed. 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 BMI 25.3 kg/m? HEENT: Atraumatic, PERRLA, EOMI, Normocephalic. Oral: No Gingival or Mucosal Lesions/ Ulcerations Neck: Supple, No JVD, Negative Carotid Bruits Chest wall/Lungs: Air entry equal in bilateral lung bases. No crepitation/rhonchi Cardiovascular: Regular rate and rhythm, Normal S1,S2, No M/G/R Abdomen: Bowel Sounds Present, Soft, Non Tender, Non-Distended : No dysuria. No renal angle tenderness. No suprapubic tenderness. Extremities: No edema, Capillary Refill Less than 3 Seconds Skin: No rashes, No breakdown Musculoskeletal: No Tenderness to Palpation of Joints or Extremities. ROM intact Neurological: Cranial nerves II-XII grossly intact, DTR 2+/4. No acute focal neurological deficit. Psych/Mental Status: Flat Assessment & Plan Assessment/Plan (1) STEMI (ST elevation myocardial infarction): QUALIFIERS: Involved coronary artery: LAD coronary artery Qualified Code(s): I21.02 - ST elevation (STEMI) myocardial infarction involving left anterior descending coronary artery PLAN: Plan The patient is a 59 y/o M admitted with chest tightness/pressure 1-2 hours prior to arrival with bilateral arm pain. This started after he finished moving the leg and then he ate the food. Patient had associated symptoms nausea vomiting, diaphoresis and dyspnea 1. Anterolateral STEMI: First EKG in ED shows NSR, ST elevation V2-V6, [address] depression in inferior leads consistent with anterolateral wall STEMI. On environmental monitoring specialist patient has multiple PVCs and short run of NSVT. Patient had PCI/LOLIS to LAD and needs staged PCI of RCA. # Tortuous LAD and RCA. Continue aspirin, Brilinta, high intensity statin. BP low therefore hold YOHANNES/ARB and beta-jamie. EF about 30% by LV gram. BP systolic 100, heart rate 90s. Fasting profile shows LDL 100. TSH and A1c ordered Start low-dose metoprolol succinate 12.5 mg daily as patient having multiple PVCs and short run of NSVT. #2. Elevated BP without hypertensive diagnosis: BP on lower side. Monitor and if BP permits low-dose YOHANNES/ARB. #3. Schizophrenia, unclear type: Exact classification of his schizophrenia unclear. Will need follow-up with psychiatrist as an outpatient. 4. Unclear history of hepatitis C: Will need outpatient follow-up and management #5. BPH without obstructive pathology:continue Flomax regimen but clarifying if this is still ongoing as patient is unsure of his medications. #6. Former tobacco use: Patient quit smoking 5 years ago. Smoked half pack per day since youth. #7. DVT prophylaxis: Lovenox to start from 24 hours of cardiac cath at 6 PM today. Discontinue if platelet count drops less than 50,000 or hemoglobin less than 8 g% #8. CODE status: Full code Charges/Coding Visit Charges Inpatient E&M: 08461 Init Hosp L3
--- NOTE | 2025-01-24 07:50 | CRPHASE1_ITS ---
Patient Communication Patient Information PHII Cardiac Rehab Discussed with Patient:: Yes Guide to Cardiac Rehab Given to Patient:: Yes Cardiac Rehab Facility Choice List Given to Patient:: Yes Communication to Cardiac Rehab Choice Program [facility] CR PHII:: Communication Given to CR Anesthesiologist Attending:: Gómez Escobar Phase II Cardiac Rehab:: Yes Sessions:: 36 sessions - 3 days/wk, 12 weeks Cardiac Rehabilitation Info Program Information Cardiac Rehabilitation Program Information: Cardiac Rehab The cardiac rehab team at [facility] consists of highly skilled exercise physiologists, nurses, respiratory therapists and physicians working together with you. Our purpose is to help you have a full recovery and achieve the goals you set for yourself. Over the years many of our patients have returned to activities they assumed they would never do again! We can help restore your confidence and motivation to make lifestyle changes that can have a significant impact on your health and quality of life! We can help answer questions and concerns you may have about exercise, lifestyle, medications, diet, stress and anxiety which are common following a hospitalization. WE monitor ECG and vital signs during exercise and discuss your progress with you and report to your physician(s). Cardiac Rehab is proven to help reduce readmissions, improve functional capacity and lower recurrence of problems with your heart. Our Cardiac Rehab program is Certified by the [place] [employer] Pulmonary [employer] (AACVPR) and Accredited by the [place] [employer] through our [facility]. You can contact us at . We invite you to call us with your questions or to get started in our program. If you have other questions or concerns be sure to ask your physician/provider during your follow-up visit. WE look forward to seeing you!
--- NOTE | 2025-01-24 07:50 | CRPH1.INSTRU ---
General Education Discussed with Patient CAD and cardiac anatomy and function:: Patient communicates acknowledgment Explanation of diagnoses and procedures:: Patient communicates acknowledgment Sign/Symptoms of CO:: Patient communicates acknowledgment Antiplatelet therapy: Patient communicates acknowledgment Proper use of NTG-SL: Patient communicates acknowledgment Emergency procedures and activation of EMS: Patient communicates acknowledgment Compliance of all prescribed medications: Patient communicates acknowledgment Smoking Risk Factors Patient Nicotine/Smoking Risk Factors Are:: Non-smoker Recommendations Recommendations Include:: Previous smoker; encourage continued cessation Response Code Nicotine/Smoking Response Code:: Patient communicates acknowledgment Dyslipidemia Risk Factors Patient Dyslipidemia Risk Factors Are:: Total Cholesterol, Triglycerides, HDL and LDL Recommendations Recommendations Include:: Lipid profile provided Response Code Dyslipidemia Response Code:: Patient communicates acknowledgment Overweight/Obesity Risk Factors Patient Overweight/Obesity Risk Factors Are:: BMI Normal [18-25 & < 65 years old] Recommendations Recommendations Include:: Weight loss of 5-10%, Reduced calorie diet and Exercise 5-7 times/week Response Code Overweight/Obesity:: Patient communicates acknowledgment Hypertension Risk Factors Patient Hypertension Risk Factors Are:: No documented hx of HTN Diabetes Risk Factors Patient Diabetes Risk Factors Are:: No documented hx of diabetes Metabolic Syndrome Risk Factors Patient Metabolic Syndrome Risk Factors Are [3 of 5]:: Fasting blood sugar > 100 mg/dL Recommendations Recommendations Include:: Encouraged follow-up with Primary Care Physician Response Code Metabolic Syndrome Response Code:: Patient communicates acknowledgment Sedentary Risk Factors Patient Sedentary Risk Factors Are:: Lack of regular exercise Recommendations Recommendations Include:: Aerobic exercise 5-7 times/week for 20-30 minutes continuously, Benefits of regular exercise, Discussed home walking program and Monitored Outpatient Cardiac Rehab Response Code Sedentary Response Code:: Patient communicates acknowledgment Stress Recommendations Recommendations Include:: Identification of stressors, and assessment of coping skills and Stress management techniques Response Code Stress Response Code:: Patient communicates acknowledgment
--- NOTE | 2025-01-24 07:59 | ECQM.STEMI ---
STEMI STEMI ED Door Time / Other REG STEMI EKG Time (1) STEMI (ST elevation myocardial infarction): Acute 01/23/25 17:57 Balloon/Aspiration Date-Time Date of Balloon/Aspiration:: 01/23/25 Time of Balloon/Aspiration:: 19:24
[2025-01-24] MEDS: TICAGRELOR 90 MG TABLET PO ×2 (09:39→21:08)
[2025-01-24] MEDS: Tamsulosin HCl 0.4 MG Capsule PO (09:39)
[2025-01-24] MEDS: Aspirin E.C. 81 MG Tablet PO (09:39)
[2025-01-24] MEDS: Metoprolol(XL)Succ 25 MG Tablet 12.5 MG PO (09:40)
--- NOTE | 2025-01-24 09:49 | CASEMGMT ---
NICOLAS VAZQUEZ Assessment Face to Face with patient for initial transition planning/care coordination assessment. NICOLAS VAZQUEZ introduced self and role at [facility], pt voices understanding. Pt is A&Ox4 and is resting comfortably in bed and is calm. Care providers, pharmacy, and demographics verified. Admitting dx: STEMI LACE Strata: 1 PCP: No PCP. Provider list given and encouraged to get established [facility] Specialists: Pt denies. Pt states that he does not see a Psychiatrist or pageant director currently. Resources provided. Preferred Pharmacy: [facility] @ the time of DC. Follow for anticoag Rx Insurance: [employer]Y [employer] Prescription Benefit: Yes LNOK: Jazmine and Simone (Mother and Father) Living Arrangements: Pt lives alone in a single story home with a flat entrance ADLs/IADLs: Pt states that he is entirely independent Transportation: Pt states that he recently lost his license and that his mom or dad can drive him. Denies concerns DME: Denies HHC/SNF: Denies Pt?s goal: Home Plan: Home, follow for anticoag. Pt denies any further DC needs and states that he feels safe returning home alone once medically ready. Carmenza Echevarria RN, CM
[2025-01-24 09:53] LABS: Hemoglobin A1c 6.7 % (<=5.6)
--- NOTE | 2025-01-24 10:00 | EKG12_ITS ---
Test Reason : STEMI Blood Pressure : */* mmHG Vent. Rate : 86 BPM Atrial Rate : 86 BPM P-R Int : 172 ms QRS Dur : 86 ms QT Int : 352 ms P-R-T Axes : 63 73 78 degrees QTcB Int : 421 ms Normal sinus rhythm Septal infarct , age undetermined Abnormal ECG When compared with ECG of 23-Jan-2025 18:06, MANUAL COMPARISON REQUIRED DATA IS UNCONFIRMED Confirmed by REMBERTO MAY, EMILY ([id number]), editor school photograph JOSE PAUL ([id number]) on 01/28/2025 9:36:24 AM Referred By: Gómez Escobar Confirmed By: EMILY SR MD
--- NOTE | 2025-01-24 12:41 | PCM.PN.CARD ---
Subjective Subjective Patient is resting comfortably Objective Data Vital Signs: Vital Signs Temp Pulse Resp BP Pulse Ox O2 Del Method 98.4 F 91 22 H 110/76 94 Room Air 01/24/25 00:00 01/24/25 10:00 01/24/25 10:00 01/24/25 10:00 01/24/25 10:00 01/24/25 10:00 Oxygen Delivery Method Room Air Weight: 171 lb 8.314 oz Body Mass Index (BMI) 25.3 Intake & Output: Intake and Output for Last 24 Hours 01/22/25 01/23/25 01/24/25 23:59 23:59 23:59 Intake Total 1120 / 1120 Output Total 1300 / 1750 450 / 450 Balance -1300 / -1750 670 / 670 Lab / Micro Data 01/24/25 05:17 01/24/25 05:17 Labs: Laboratory Results - last 24 hr 01/23/25 18:10: WBC 15.1 H, RBC 5.92, Hgb 18.3 H*, Hct 51.3, MCV 86.7, MCH 30.9, MCHC 35.7, RDW Std Deviation 39.5, RDW Coeff of Tree 12.6, Plt Count 217, MPV 9.3, Immature Gran % (Auto) 0.300, Neut % (Auto) 83.1 H, Lymph % (Auto) 12.1 L, [place] % (Auto) 3.5, Eos % (Auto) 0.5, Baso % (Auto) 0.5, Absolute Neuts (auto) 12.5 H, Absolute Lymphs (auto) 1.83, Nucleated RBC % 0, PT 13.7, INR 1.0, APTT 31.3, Sodium 139, Potassium 4.0, Chloride 101, Carbon Dioxide 26.7, Anion Gap 12, BUN 17, Creatinine 0.88, Estim Creat Clear Calc 92.62, Est GFR (MDRD) Non-Af 100, BUN/Creatinine Ratio 19.8, Glucose 215 H, Calcium 9.6, Troponin T High Sens 39 H 01/23/25 18:30: Magnesium 1.9 01/23/25 20:40: Troponin T Hi Sens 2 Hr 5050 H* 01/24/25 00:31: Troponin T Hi Sens 4Hr > 53116 H* 01/24/25 05:17: WBC 17.4 H, RBC 5.12, Hgb 16.0, Hct 44.2, MCV 86.3, MCH 31.3, MCHC 36.2 H, RDW Std Deviation 39.2, RDW Coeff of Tree 12.6, Plt Count 209, MPV 9.1, Immature Gran % (Auto) 0.300, Neut % (Auto) 87.5 H, Lymph % (Auto) 7.4 L, [place] % (Auto) 4.6, Eos % (Auto) 0.1, Baso % (Auto) 0.1, Absolute Neuts (auto) 15.2 H, Absolute Lymphs (auto) 1.29, Nucleated RBC % 0, Sodium 141, Potassium 3.9, Chloride 106, Carbon Dioxide 22.7, Anion Gap 12, BUN 18, Creatinine 0.82, Estim Creat Clear Calc 99.39, Est GFR (MDRD) Non-Af 103, BUN/Creatinine Ratio 22.5 H, Glucose 199 H, Hemoglobin A1c 6.7 H, Calcium 8.8, Total Bilirubin 1.01, AST 658 H, ALT 113 H, Alkaline Phosphatase 83, Total Protein 6.2, Albumin 3.7, Globulin 2.5, Albumin/Globulin Ratio 1.5, Triglycerides 92, Cholesterol 166, LDL Cholesterol, Calc 100, VLDL Cholesterol 18, HDL Cholesterol 48, Cholesterol/HDL Ratio 3.47, TSH 1.620 Cardiology Labs/Tests 01/23/25 18:10: WBC 15.1 H, RBC 5.92, Hgb 18.3 H*, Hct 51.3, MCV 86.7, MCH 30.9, MCHC 35.7, Plt Count 217, MPV 9.3, Immature Gran % (Auto) 0.300, Neut % (Auto) 83.1 H, Lymph % (Auto) 12.1 L, [place] % (Auto) 3.5, Eos % (Auto) 0.5, Baso % (Auto) 0.5, Absolute Neuts (auto) 12.5 H, Nucleated RBC % 0, PT 13.7, INR 1.0, APTT 31.3, Sodium 139, Potassium 4.0, Chloride 101, Carbon Dioxide 26.7, Anion Gap 12, BUN 17, Creatinine 0.88, Est GFR (MDRD) Non-Af 100, BUN/Creatinine Ratio 19.8, Glucose 215 H, Calcium 9.6 01/23/25 18:30: Magnesium 1.9 01/24/25 05:17: WBC 17.4 H, RBC 5.12, Hgb 16.0, Hct 44.2, MCV 86.3, MCH 31.3, MCHC 36.2 H, Plt Count 209, MPV 9.1, Immature Gran % (Auto) 0.300, Neut % (Auto) 87.5 H, Lymph % (Auto) 7.4 L, [place] % (Auto) 4.6, Eos % (Auto) 0.1, Baso % (Auto) 0.1, Absolute Neuts (auto) 15.2 H, Nucleated RBC % 0, Sodium 141, Potassium 3.9, Chloride 106, Carbon Dioxide 22.7, Anion Gap 12, BUN 18, Creatinine 0.82, Est GFR (MDRD) Non-Af 103, BUN/Creatinine Ratio 22.5 H, Glucose 199 H, Hemoglobin A1c 6.7 H, Calcium 8.8, Total Bilirubin 1.01, Triglycerides 92, Cholesterol 166, VLDL Cholesterol 18, HDL Cholesterol 48, Cholesterol/HDL Ratio 3.47 Rhythm: EKG: ECHO: Stress Test: Cardiac Cath: PCI: CT Surgery: Holter monitor: EPS: PPM: CXR: Chest CT Scan: Physical Exam Const no apparent distress HEENT normocephalic Resp normal respiratory effort Assessment & Plan Assessment/Plan (1) STEMI (ST elevation myocardial infarction): QUALIFIERS: Involved coronary artery: LAD coronary artery Qualified Code(s): I21.02 - ST elevation (STEMI) myocardial infarction involving left anterior descending coronary artery PLAN: Treated with drug-eluting stent to the LAD. Patient needs staged PCI of the RCA. He has tortuous LAD and RCA. We will keep him on aspirin, Brilinta, statin. Agree with adding low-dose beta-jamie. Low-dose YOHANNES inhibitor can be added if tolerated well blood pressure. Not on YOHANNES inhibitor yet because of borderline blood pressure.
[2025-01-24] MEDS: Enoxaparin 40 MG/0.4 ML Syringe SC (17:36)
[2025-01-24] MEDS: Atorvastatin Calcium 80 MG Tablet PO (21:08)
[2025-01-24] MEDS: MELATONIN 3 MG TABLET PO (21:17)
[2025-01-25] VITALS (17 sets, daily range): BP systolic 86–111; BP diastolic 57–79; PULSE 74–104; RESP 12–24; TEMP 36.6–37.1; O2SAT 93–98; BMI 25.8
[2025-01-25] MEDS: Ondansetron 4 MG/2 ML Vial IV (04:44)
[2025-01-25 05:09] LABS: Absolute Lymphocyte Count 2.99 X10^3/uL (0.83-4.51); Absolute Neutrophil Count 14.3 X10^3/uL (2.0-7.7); Basophil# 0.06 X10^3/uL; Basophil% 0.3 % (0-1); Eosinophil# 0.06 X10^3/uL; Eosinophils% 0.3 % (0-5); Hematocrit 41.7 % (40-54); Hemoglobin 15.2 g/dL (13.0-16.5); Lymphocyte # 2.99 X10^3/ul (0.83-4.51); Lymphocyte % 15.8 % (19-41); Mean Corp Hgb Conc 36.5 g/dL (32-36); Mean Corpuscular Hgb 31.3 pg (27.0-32.0); Mean Platelet Vol. 9.3 fl (6.2-12.0); Monocyte# 1.42 X10^3/uL; Monocyte% 7.5 % (0-10); NRBC Flagged by Analyzer 0 % (0-5); Neutrophil # 14.33 X10^3/uL (2.7-7.7); Neutrophil % 75.7 % (47-70); Platelet Count 216 K/mm3 (150-450); RBC Distribution Width CV 12.3 % (11.6-14.6); RBC Distribution Width SD 38.5 fl (35.1-43.9); Red Blood Count 4.85 M/mm3 (4.6-6.2); White Blood Count 18.9 K/mm3 (4.4-11.0)
[2025-01-25 05:23] LABS: Anion Gap 11 (5-15); BUN 25 mg/dL (4-19); BUN/Creat Ratio 31.5 RATIO (10-20); Calcium,Total 8.6 mg/dL (7.6-11.0); Chloride 103 mmol/L (98-108); EST Glomerular Filtration Rate 103 (>60); Estimated Creatinine Clearance 101.88 ml/min (50-250); Glucose 154 mg/dL (70-99); Potassium 3.4 mmol/L (3.3-5.1); Sodium Level 137 mmol/L (133-145)
--- NOTE | 2025-01-25 10:00 | EKG12_ITS ---
Test Reason : AM EKG Blood Pressure : */* mmHG Vent. Rate : 74 BPM Atrial Rate : 74 BPM P-R Int : 146 ms QRS Dur : 88 ms QT Int : 416 ms P-R-T Axes : 51 70 116 degrees QTcB Int : 461 ms Normal sinus rhythm ST & T wave abnormality, consider anterior ischemia Prolonged QT Abnormal ECG When compared with ECG of 25-Jan-2025 05:13, MANUAL COMPARISON REQUIRED DATA IS UNCONFIRMED Confirmed by REMBERTO MAY, EMILY ([id number]), editor in chief JOSE PAUL ([id number]) on 01/28/2025 9:43:02 AM Referred By: Góemz Escobar Confirmed By: EMILY SR MD
[2025-01-25] MEDS: Metoprolol(XL)Succ 25 MG Tablet 12.5 MG PO (11:17)
[2025-01-25] MEDS: Tamsulosin HCl 0.4 MG Capsule PO (11:17)
[2025-01-25] MEDS: TICAGRELOR 90 MG TABLET PO (11:18)
[2025-01-25] MEDS: Aspirin E.C. 81 MG Tablet PO (11:18)
--- NOTE | 2025-01-25 12:23 | PN.CARD_ITS ---
Subjective Subjective Patient seen and evaluated. Doing well. No complaints. Objective Data Vital Signs: Vital Signs Temp Pulse Resp BP Pulse Ox O2 Del Method 97.8 F 104 H 15 104/64 95 Room Air 01/25/25 00:00 01/25/25 11:17 01/25/25 07:00 01/25/25 11:17 01/25/25 07:00 01/25/25 07:00 Oxygen Delivery Method Room Air Weight: 174 lb 9.698 oz Body Mass Index (BMI) 25.8 Intake & Output: Intake and Output for Last 24 Hours 01/23/25 01/24/25 01/25/25 23:59 23:59 23:59 Intake Total 1360 / 1360 240 / 240 Output Total 1300 / 1750 950 / 950 Balance -1300 / -1750 410 / 410 240 / 240 Lab / Micro Data 01/25/25 04:36 01/25/25 04:36 Labs: Laboratory Results - last 24 hr 01/25/25 04:36: WBC 18.9 H, RBC 4.85, Hgb 15.2, Hct 41.7, MCV 86.0, MCH 31.3, M CHC 36.5 H, RDW Std Deviation 38.5, RDW Coeff of Tree 12.3, Plt Count 216, MPV 9.3, Immature Gran % (Auto) 0.400, Neut % (Auto) 75.7 H, Lymph % (Auto) 15.8 L, [place] % (Auto) 7.5, Eos % (Auto) 0.3, Baso % (Auto) 0.3, Absolute Neuts (auto) 14.3 H, Absolute Lymphs (auto) 2.99, Nucleated RBC % 0, Sodium 137, Potassium 3.4, Chloride 103, Carbon Dioxide 24.0, Anion Gap 11, BUN 25 H, Creatinine 0.80, Estim Creat Clear Calc 101.88, Est GFR (MDRD) Non-Af 103, BUN/Creatinine Ratio 31.5 H, Glucose 154 H, Calcium 8.6 Cardiology Labs/Tests 01/25/25 04:36: WBC 18.9 H, RBC 4.85, Hgb 15.2, Hct 41.7, MCV 86.0, MCH 31.3, M CHC 36.5 H, Plt Count 216, MPV 9.3, Immature Gran % (Auto) 0.400, Neut % (Auto) 75.7 H, Lymph % (Auto) 15.8 L, [place] % (Auto) 7.5, Eos % (Auto) 0.3, Baso % (Auto) 0.3, Absolute Neuts (auto) 14.3 H, Nucleated RBC % 0, Sodium 137, Potassium 3.4, Chloride 103, Carbon Dioxide 24.0, Anion Gap 11, BUN 25 H, Creatinine 0.80, Est GFR (MDRD) Non-Af 103, BUN/Creatinine Ratio 31.5 H, Glucose 154 H, Calcium 8.6 Rhythm: EKG: ECHO: Stress Test: Cardiac Cath: PCI: CT Surgery: Holter monitor: EPS: PPM: CXR: Chest CT Scan: Physical Exam Const alert, oriented x3 and no apparent distress General Appearance: cooperative HEENT hearing grossly normal bilaterally Head and Scalp: atraumatic Eyes EOMs intact bilaterally Neck General: normal visual inspection Chest inspection of chest normal and palpation of chest normal Resp normal respiratory effort Auscultation: clear to auscultation bilaterally Cardio regular rate, regular rhythm, S1 normal heart sound and S2 normal heart sound Jugular Venous Distention: JVD GI normal to inspection, nondistended, normoactive bowel sounds Extremity normal capillary refill and no pedal edema Peripheral Pulses: Yes pulses 2+ throughout and femoral pulses present Skin no rashes or lesions noted Neuro oriented x3 and CN's II-XII intact bilaterally Psych Appearance: grossly normal and appropriate Assessment & Plan Assessment/Plan (1) Stented coronary artery: PLAN: He is status post acute anterior myocardial infarction with totally occluded left anterior descending artery for which he underwent angioplasty and stenting. Plan will be to continue aspirin indefinitely High intensity statin Beta-jamie P2 Y12 inhibitor for minimum of a year. Patient to be up in about and to be enrolled in cardiac rehabilitation. (2) Cardiomyopathy: PLAN: He does have a history of ischemic cardiomyopathy with an estimated ejection fraction of approximately 40% with segmental wall motion abnormalities involving the anterior wall apex and anteroseptal wall. Will recommend carvedilol 3.125 mg twice a day Start lisinopril 2.5 mg daily Will see in office and titrate up medications He does not have any evidence of heart failure at this time
--- NOTE | 2025-01-25 15:24 | CL.I_ITS ---
Patient Name: ISSA YEH Study Date: 01/23/2025 Performing: Deanna Escobar MD Ht: 69 inches 175.26 cm : 1965 Wt: 171.1 lbs 77.52 kg Age: 59 Gender: male BSA: 1.93 PROCEDURE(S) PERFORMED DC01-(44596)LHC/COR/LV IC16-([id number])AMI, LOLIS OR PTCA, ARTERY/GRAFT, SINGLE VESSEL CLINICAL PROFILE AND CO-MORBIDITIES Indications: ACS <= 24 hrs, STEMI Heart Failure: None CONCLUSIONS CAD as described. LVEF is 30% with anterior and apical hypokinesis. Successful thrombectomy and drug-eluting stent placement to the proximal LAD. RECOMMENDATIONS Patient should return for PCI of RCA in about 4 weeks DESCRIPTION OF PROCEDURE The patient arrived to the procedure lab. The risks and benefits of the procedure as well as a full description of our services here and lack of surgical backup were fully explained to the patient and/or their significant other prior to the catheterization. The Timeout was completed, verifying the correct patient and procedure. The patient's procedural site was prepped and draped in the usual fashion. Local anesthetic was given subcutaneously to right radial region with Lidocaine 2%. Using a modified Seldinger technique, arterial access was obtained via the right radial artery, a 6Fr sheath was inserted.. Left Coronary Artery selective angiography was performed in multiple views using a 6 Fr.. Left Ventriculography was performed in RAMIRES projection using a 5 Fr. Pigtail catheter. LV to AO pullback pressures were then recorded. Right Coronary Artery selective angiography was then performed in multiple views using a 5 Fr. JR 4 catheter bmw Guide wire was advanced to the Circumflex. bmw Guide wire was advanced to the LAD. xb3 Guide catheter was inserted and engaged into the LCA. Priority One inserted Pass # 1 Priority One Removed nichelle 3.5 x 15 Drug Eluting stent was advanced across the lesion in the LAD, proximal. Angiogram performed post stent deployment. Drug Eluting stent was advanced across the lesion in the LAD, proximal. The arterial sheath was pulled and a TR Band was applied for hemostasis CORONARY ANGIOGRAPHY DOMINANCE: Right Dominant LEFT HEART ASSESSMENT Left Ventricular Ejection Fraction: by LV Gram 30 % with anterior and apical hypokinesis LEFT MAIN: Mild luminal irregularities LEFT ANTERIOR DESCENDING ARTERY: PROX LAD: is occluded CIRCUMFLEX ARTERY: Mild luminal irregularities RIGHT CORONARY ARTERY: MID RCA: 80 % Stenosis INTERVENTION INFORMATION LESION SITE: LAD (Proximal) Pre Stenosis: 100 % Pre intervention NORRIS flow: 0 PROCEDURE: Thrombectomy, Drug Eluting Stent with post dilatation Post Stenosis: 0 % Post intervention NORRIS flow: 2 Lesion Devices: Cordis 6 Fr XB3.0 100cm Guide Catheter Robles .014 190cm BMW Warner Straight Terumo Priority One Aspiration Catheter Medtronic 3.5 x 15 NICHELLE FRONTIER LOLIS Medtronic 3.5 x 08 NICHELLE FRONTIER LOLIS COMPLICATIONS No Complications PROCEDURE MEDICATIONS Oxygen: 2 L/min via nasal cannula Aggrastat 12.5mg / 250ml D5W: 12.3 ml/hr @ 01/23/2025 19:48:02 Heparin given IA 01/23/2025 19:15:34 Lasix 40 mg IV 01/23/2025 19:52:30 Verapamil 2.5mg, Ntg 100mcgs, 3000 units of Heparin given IA 01/23/2025 19:15:34 SUMMARY OF HEMODYNAMIC DATA Time AIR REST ECG 18:50:54 AO 101/68 (83) SA 19:16:16 LV 94/13, 27 19:52:50 LV 96/11, 31 19:52:57 LV 90/9, 24 19:53:47 LVp 93/12, 22 19:54:01 AOp 78/50 (63) 19:54:06 Signed By Deanna Escobar MD On 01/25/2025 15:24:16 Deanna Escobar MD
--- NOTE | 2025-01-25 16:04 | PCM.DC ---
Discharge Instructions Diet Discharge Diet: Low fat / Low cholesterol DC O2, CPAP, BIPAP needs Home O2 Discharge instructions: No Dressing / Incision Discharge Activity: Return to Normal Activity Dressing / Incision Call your doctor if you observe: Fever of 101 or Higher, Shortness of breath, Dizziness, Fainting spells, Swelling in the ankles, Chest pain and Increased palpitations (irregular heartbeat) Follow Up Care Test Results: Test results from this visit will be discussed in further detail at your follow-up appointment, if applicable. Discharge Plan Admission Admit Date/Time: 01/23/25 18:23 Attending Provider: Lalito Niño Primary Care Provider: Care Physician,No Primary Consulting Providers: Dalia Shukla; Gómez Escobar; Fei Morales Instructions Patient Instructions: Coronary Stents Additional Instructions / Restrictions: Follow-up with cardiology within a month to adjust medications, also recommend finding a primary care physician to recheck your white blood cell count it was little bit elevated but she did not have any obvious signs of infection but unclear as to the cause at this time so I would prefer if you were able to follow-up next week for lab work on an outpatient basis. Discharge Orders/Prescriptions Prescriptions: New atorvastatin 80 mg Tablet 80 mg PO QHS 30 Days Qty: 30 0RF aspirin 81 mg Tablet,Delayed Release (Dr/Ec) 81 mg PO BREAKFAST 30 Days Qty: 30 0RF carvedilol 3.125 mg Tablet 3.125 mg PO BIDCM 30 Days Qty: 60 0RF lisinopril 2.5 mg Tablet 2.5 mg PO DAILY 30 Days Qty: 30 0RF ticagrelor [Brilinta] 90 mg Tablet 90 mg PO BID 30 Days Qty: 60 0RF Referrals / Follow Up: Denver Tai MD [Med Staff - Active Staff] - Within 1 Month Care Physician,No Primary [Primary Care Provider] - Disposition Disposition (needs filled in before D/C Order can be placed): Home, Self Care
--- NOTE | 2025-01-25 16:14 | PCM.DC.SUM ---
Providers Date of Admission: 01/23/25 Primary Care Physician: No Primary Care Phys Consultations 01/23/25 18:27 Consult: Cardiology Stat Consulting Provider: Gómez Escobar Reason for Consult: STEMI EMERGENT Consult: Yes MD Notified: Yes Date Notified: 01/23/25 Time Notified: 18:25 Method of Notification: ED Physician Initiated Reason For Visit: STEMI Diagnosis Discharge Diagnosis (1) Stented coronary artery: Status: Chronic Code(s): Z95.5 - Presence of coronary angioplasty implant and graft (2) Cardiomyopathy: Status: Acute Code(s): I42.9 - Cardiomyopathy, unspecified Medications at Discharge Home Medications aspirin 81 mg tablet,delayed release 81 mg PO BREAKFAST 30 days #30 tabs 01/25/25 atorvastatin 80 mg tablet 80 mg PO QHS 30 days #30 tabs 01/25/25 carvedilol 3.125 mg tablet 3.125 mg PO BIDCM 30 days #60 tabs 01/25/25 lisinopril 2.5 mg tablet 2.5 mg PO DAILY 30 days #30 tabs 01/25/25 ticagrelor 90 mg tablet (Brilinta) 90 mg PO BID 30 days #60 tabs 01/25/25 Hospital Course Operations None Procedures 2-D Echocardiogram and Cardiac catheterization Summary of Care Provided Minutes Spent on Discharge: 33 Hospital Course: Per HPI: The patient is a 59 y/o M w/ PMHx: Chart reported history of Hepatitis C (unclear etiology, denies history of substance abuse), BPH without obstructive pathology, Former tobacco use, Schizophrenia unclear type not on medication who presents to the [facility] ED on 01/23/25 with history of onset approximately 2 hours prior to arrival midsternal nonradiating chest discomfort described as a heaviness/pressure-like in sensation with associated nausea, bout of emesis, diaphoresis, dyspnea as well as lightheaded and dizziness initially 10 out of 10 in severity eventually prompting ED transition for evaluation and upon arrival noted and slightly decreased to 5 out of 10 in severity. Patient reported a family underlying cardiac history. He notes that when this happened he had just been sitting down to eat but prior to that he had been outside mowing on a riding mower. During evaluation repeat question for severity and patient reported his discomfort down to 3 out of 10 in severity. In the ED workup included T98.7, heart 102, BP 161/107, respiratory rate 18, 98% room air, pending CBC, coags, BMP, troponin, chest x-ray upon evaluation. In the ED EKG reviewed with electroplater helper following STEMI alert initiation upon arrival. Hospital Course: 1. STEMI/essential HTN?59-year-old male with a history of schizophrenia and hepatitis C who does not really receive consistent health care presented to the hospital with chest pain, EKG in the ER demonstrated anterior lateral ST elevations. He was taken for heart cath demonstrating a mid 80% RCA stenosis as well as a proximal LAD occlusion. He had a thrombectomy and stent placement to the proximal LAD with a plan to have an outpatient staged PCI of the RCA. He denies any current chest pain after intervention or shortness of breath. No lightheadedness or dizziness. He has been started on multiple new medications including an aspirin as well as Brilinta, Lipitor, Coreg, lisinopril. EF is 30% with apical hypokinesis and signs of diastolic dysfunction, however given his initial lack of medications I did not want to overload him with other goal-directed therapy like Jardiance at this time. I do anticipate some recovery and his ejection fraction and therefore we will plan to discharge with outpatient follow-up to cardiology for staged PCI of his right coronary artery and repeat echocardiogram in a couple months. If his EF continues to be reduced at that time then an SGLT2 inhibitor can be started. He will also to follow-up as an outpatient for medication titration, blood pressures and heart rates seem to be stable at this time. I discussed with him the plan for possible discharge today and he expressed understanding of the risk benefits of going home and would like to go home today. 2. Leukocytosis?unclear as to the etiology of his leukocytosis it does appear that initially was felt to be reactive however it has continued to climb. He has no obvious signs of infection, there are no lung findings on his exam, he does not have any dysuria or urinary frequency, and there is no skin changes. He does have a neutrophilia and lymphopenia but he does not have a left shift. At this time I do recommend that he follows up as an outpatient with his primary care provider and rechecking his CBC in a week or 2 and if remains elevated may benefit from a referral to hematology. Physical Exam Narrative General: Alert, Oriented x3, Cooperative, No apparent distress HEENT: Atraumatic, PERRLA, EOMI, Normocephalic Oral: Moist Mucosa Neck: Supple, No JVD Lungs: Clear to auscultation, Normal air movement, No rhonchi, No wheeze, No rales Cardiovascular: Regular rate, Regular Rhythm, Normal S1, Normal S2, No murmurs Abdomen: Soft, Non Tender, Non-Distended, No Hepato-splenomegaly Extremities: No edema, Capillary Refill Less than 3 Seconds Skin: No rashes, No breakdown Musculoskeletal: No Tenderness to Palpation of Joints or Extremities Neurological: No focal neurological deficits, Motor Exam 5/5 strength throughout, Sensory exam intact to light touch and pain Psych/Mental Status: Normal Affect, Appropriate Weight / BMI Weight Weight: 174 lb 9.698 oz Body Mass Index (BMI) 25.8 ABG / Lab / Microbiology Data 01/25/25 04:36 01/25/25 04:36 Laboratory: Laboratory Results - last 24 hr 01/25/25 04:36: WBC 18.9 H, RBC 4.85, Hgb 15.2, Hct 41.7, MCV 86.0, MCH 31.3, MCHC 36.5 H, RDW Std Deviation 38.5, RDW Coeff of Tree 12.3, Plt Count 216, MPV 9.3, Immature Gran % (Auto) 0.400, Neut % (Auto) 75.7 H, Lymph % (Auto) 15.8 L, [place] % (Auto) 7.5, Eos % (Auto) 0.3, Baso % (Auto) 0.3, Absolute Neuts (auto) 14.3 H, Absolute Lymphs (auto) 2.99, Nucleated RBC % 0, Sodium 137, Potassium 3.4, Chloride 103, Carbon Dioxide 24.0, Anion Gap 11, BUN 25 H, Creatinine 0.80, Estim Creat Clear Calc 101.88, Est GFR (MDRD) Non-Af 103, BUN/Creatinine Ratio 31.5 H, Glucose 154 H, Calcium 8.6 Radiography Diagnostic Testing: Radiology Impression Echocardiogram 01/23/25 20:34 Interpretation Summary The estimated ejection fraction is 25-30 %. Hypokinesis of the apex and anterior wall There is evidence of diastolic dysfunction. Ordering Physician: Dalia Shukla Referring Physician: Gómez Escobar Performed By: Kyle Prasad RCS D/C Instructions Discharge Diet: Low fat / Low cholesterol Call your doctor if you observe: Fever of 101 or Higher, Shortness of breath, Dizziness, Fainting spells, Swelling in the ankles, Chest pain and Increased palpitations (irregular heartbeat) DC O2, CPAP, BIPAP Needs Home O2 Discharge instructions: No Meaningful Use Info Meaningful Use Meaningful Use Diagnoses (Choose all that apply): None applicable Ischemic Stroke Statin Dosing Therapy Reference: STATIN DOSE THERAPY REFERENCE: * Patients > 75 years receive moderate or high dose statin therapy. * Patients 75 years or YOUNGER should receive HIGH intensity statin dose unless contraindicated. You will be required to document reason for non-treatment if statin daily dose does not meet guidelines. HIGH DOSE STATIN THERAPY DAILY Atorvastatin > than or = to 40 mg Rosuvastatin > than or = to 20 mg Amlodipine + Atorvastatin > than or = to 2.5/40 mg Ezetimibe + Simvastatin 10/80 mg Simvastatin 80mg Discharge Plan Admission Admit Date/Time: 01/23/25 18:23 Attending Provider: Lalito Niño Primary Care Provider: Care Physician,No Primary Consulting Providers: Dalia Shukla; Gómez Escobar; Fei Morales Instructions Patient Instructions: Coronary Stents Additional Instructions / Restrictions: Follow-up with cardiology within a month to adjust medications, also recommend finding a primary care physician to recheck your white blood cell count it was little bit elevated but she did not have any obvious signs of infection but unclear as to the cause at this time so I would prefer if you were able to follow-up next week for lab work on an outpatient basis. Discharge Orders/Prescriptions Prescriptions: New atorvastatin 80 mg Tablet 80 mg PO QHS 30 Days Qty: 30 0RF aspirin 81 mg Tablet,Delayed Release (Dr/Ec) 81 mg PO BREAKFAST 30 Days Qty: 30 0RF carvedilol 3.125 mg Tablet 3.125 mg PO BIDCM 30 Days Qty: 60 0RF lisinopril 2.5 mg Tablet 2.5 mg PO DAILY 30 Days Qty: 30 0RF ticagrelor [Brilinta] 90 mg Tablet 90 mg PO BID 30 Days Qty: 60 0RF Referrals / Follow Up: Denver Tai MD [Med Staff - Active Staff] - Within 1 Month Care Physician,No Primary [Primary Care Provider] - Disposition Disposition (needs filled in before D/C Order can be placed): Home, Self Care Charges/Coding Visit Charges Inpatient E&M: 20495 Disch Hosp >30min
--- NOTE | 2025-01-25 16:22 | CASEMGMT ---
Pt has an order for DC placed and a new Rx for Brilinta. TC to [facility] who states that the pt has a 0$ copay. RN CM to pt room at this time. Pt parents @ bedside. Pt was encouraged to have the med delivered to his bedside (P2Y medication). However, pt disagrees and states that he prefers to go to the pharmacy to cloth picker his new Rxs. TC to [facility] again and Donovan notified and states that the pharmacy is extremely busy at this time and prefers that the pt come to the pharmacy for cloth picker anyway as they would not have the staff to deliver the meds for some time. Pt RN updated. No further needs identified.
[2025-01-25] MEDS: Acetaminophen 325 MG Tablet 650 MG PO (16:35)
== END 2025-01-25 16:35 | disposition home or self-care (01) | DRG 174 ==
LOC: ED 18:52 → ICU 01-24 07:18
PROVIDERS: Internal Medicine; Admitting Provider Family Medicine; Emergency Provider Emergency Medicine; Referring Provider Specialist; Visit Provider Family Medicine
DX: I21.11 ST elevation (STEMI) myocardial infarction involving right coronary artery (principal); D72.829 Elevated white blood cell count, unspecified; F20.9 Schizophrenia, unspecified; N40.0 Benign prostatic hyperplasia without lower urinary tract symptoms; Z87.891 Personal history of nicotine dependence; Z95.5 Presence of coronary angioplasty implant and graft
CPT/HCPCS: 80048; 80053; 80061; 83036; 83735; 84443; 84484; 85025; 85610; 85730; 92941; 93005; 93306; 93458; 94762; 97802; 99285; C1757; Q9957; Q9967; A4216; C1769; C1874; C1887; C1894; C8929; C9606; J1327; J1940; J2405

== ENCOUNTER → 2025-02-07 | Outpatient (CLI) | payer MEDICAID, SELFPAY ==
[2025-02-07 16:37] LABS: ALB/GLOB Ratio 1.2 RATIO (0.9-2.4); AST(SGOT) 34 U/L (<=37); Alanine Aminotransfer ALT/SGPT 38 U/L (<=46); Albumin, Serum 3.8 g/dL (3.5-5.0); Alkaline Phosphatase 113 U/L (40-129); Anion Gap 11 (5-15); BUN 18 mg/dL (4-19); BUN/Creat Ratio 19.6 RATIO (10-20); Calcium,Total 9.2 mg/dL (7.6-11.0); Carbon Dioxide 24.8 mmol/L (21.0-32.0); Chloride 102 mmol/L (98-108); Creatinine, Serum 0.89 mg/dL (0.70-1.20); EST Glomerular Filtration Rate 100 (>60); Globulin 3.2 g/dL (2.2-4.2); Glucose 179 mg/dL (70-99); Potassium 4.3 mmol/L (3.3-5.1); Protein, Total 6.9 g/dL (5.9-8.4); Sodium Level 137 mmol/L (133-145); Total Bilirubin 0.73 mg/dL (0.00-1.30)
[2025-02-11 14:08] LABS: HCV Quant. RNA PCR 2460000 IU/mL (.); HCV log 10 6.233 (.); HCV log 10 6.391 (.); HEPATITIS B SURFACE AG Negative (Negative); Hep C Antibodies Reactive (Non Reactive); Hepatitis A IgM Antibody Negative (Negative); Hepatitis B Core AB IgM Negative (Negative); Hepatitis C Genotype 1a (.); Hepatitis C Quant 1710000 IU/mL (.)
== END | disposition home or self-care (01) ==
PROVIDERS: Referring Provider Student in an Organized Health Care Education/Training Program; Visit Provider Student in an Organized Health Care Education/Training Program
DX: B19.20 Unspecified viral hepatitis C without hepatic coma (principal); R11.2 Nausea with vomiting, unspecified
CPT/HCPCS: 36415; 80053; 80074; 87522; 87902

== ENCOUNTER 2025-02-27 08:17 | Day surgery (SDC) | payer MEDICAID, SELFPAY ==
[2025-02-14 13:37] LABS: Absolute Lymphocyte Count 2.91 X10^3/uL (0.83-4.51); Absolute Neutrophil Count 7.8 X10^3/uL (2.0-7.7); Basophil# 0.06 X10^3/uL; Basophil% 0.5 % (0-1); Eosinophil# 0.24 X10^3/uL; Hematocrit 48.6 % (40-54); Lymphocyte # 2.91 X10^3/ul (0.83-4.51); Lymphocyte % 24.6 % (19-41); Mean Corpuscular Hgb 30.7 pg (27.0-32.0); Mean Corpuscular Volume 87.9 fL (80-94); Mean Platelet Vol. 9.2 fl (6.2-12.0); Monocyte# 0.78 X10^3/uL; Monocyte% 6.6 % (0-10); NRBC Flagged by Analyzer 0 % (0-5); Neutrophil # 7.82 X10^3/uL (2.7-7.7); Platelet Count 272 K/mm3 (150-450); RBC Distribution Width CV 12.4 % (11.6-14.6); RBC Distribution Width SD 39.8 fl (35.1-43.9); Red Blood Count 5.53 M/mm3 (4.6-6.2); White Blood Count 11.9 K/mm3 (4.4-11.0)
[2025-02-14 14:25] LABS: Anion Gap 11 (5-15); BUN 14 mg/dL (4-19); BUN/Creat Ratio 14.6 RATIO (10-20); Calcium,Total 9.2 mg/dL (7.6-11.0); Carbon Dioxide 26.6 mmol/L (21.0-32.0); Chloride 102 mmol/L (98-108); Creatinine, Serum 0.95 mg/dL (0.70-1.20); EST Glomerular Filtration Rate 94 (>60); Glucose 116 mg/dL (70-99); Potassium 4.9 mmol/L (3.3-5.1); Sodium Level 140 mmol/L (133-145)
[2025-02-26 10:45] VITALS: BMI 25.7
--- NOTE | 2025-02-27 12:28 | CRPHASE1_ITS ---
Patient Communication Patient Information Former Patient:: Phase I PHII Cardiac Rehab Discussed with Patient:: Yes Guide to Cardiac Rehab Given to Patient:: Yes (PREVIOUS ADMISSION AND THIS ADMISSION ) Cardiac Rehab Facility Choice List Given to Patient:: Yes Communication to Cardiac Rehab Choice Program [facility] CR PHII:: Communication Given to CR and Refer to [facility] Choice Program Other:: Communication Given to CR Crossing Guard:: Gómez Escobar Refer Phase II Cardiac Rehab:: Yes Sessions:: 36 sessions - 3 days/wk, 12 weeks Post Discharge Choice Letter Given to Patient:: Yes PHII Cardiac Rehab Referral:: [facility] Phase I Charge:: Level I - Education Medical/Surgical History Medical History AR:: Yes Angina:: Yes Cardiomyopathy:: Yes CVA/TIA: Surgical History PTCA:: Yes Ambulation Ambulation Notes:: INDEPEDENT Cardiac Rehabilitation Info Program Information Cardiac Rehabilitation Program Information: Cardiac Rehab The cardiac rehab team at [facility] consists of highly skilled exercise physiologists, nurses, respiratory therapists and physicians working together with you. Our purpose is to help you have a full recovery and achieve the goals you set for yourself. Over the years many of our patients have returned to activities they assumed they would never do again! We can help restore your confidence and motivation to make lifestyle changes that can have a significant impact on your health and quality of life! We can help answer questions and concerns you may have about exercise, lifestyle, medications, diet, stress and anxiety which are common following a hospitalization. WE monitor ECG and vital signs during exercise and discuss your progress with you and report to your physician(s). Cardiac Rehab is proven to help reduce readmissions, improve functional capacity and lower recurrence of problems with your heart. Our Cardiac Rehab program is Certified by the [place] [employer] Pulmonary [employer] (AACVPR) and Accredited by the [place] [employer] through our [facility]. You can contact us at . We invite you to call us with your questions or to get started in our program. If you have other questions or concerns be sure to ask your physician/provider during your follow-up visit. WE look forward to seeing you!
--- NOTE | 2025-02-27 12:32 | CRPH1.INSTRU ---
General Education Discussed with Patient CAD and cardiac anatomy and function:: Patient communicates acknowledgment Explanation of diagnoses and procedures:: Patient communicates acknowledgment Sign/Symptoms of TN:: Patient communicates acknowledgment Antiplatelet therapy: Patient communicates acknowledgment Proper use of NTG-SL: Patient communicates acknowledgment Emergency procedures and activation of EMS: Patient communicates acknowledgment Compliance of all prescribed medications: Patient communicates acknowledgment Smoking Risk Factors Patient Nicotine/Smoking Risk Factors Are:: Cigarettes Recommendations Recommendations Include:: Previous smoker; encourage continued cessation Response Code Nicotine/Smoking Response Code:: Patient communicates acknowledgment Dyslipidemia Recommendations Recommendations Include:: Lipid profile not available Response Code Dyslipidemia Response Code:: Patient communicates acknowledgment Overweight/Obesity Risk Factors Patient Overweight/Obesity Risk Factors Are:: BMI Normal [24-29 & > 65 years old] (25.7) Recommendations Recommendations Include:: Exercise 5-7 times/week Response Code Overweight/Obesity:: Patient communicates acknowledgment Hypertension Risk Factors Patient Hypertension Risk Factors Are:: No documented hx of HTN Recommendations Recommendations Include:: Maintain BP <130/85, DASH dietary guidelines and Moderation of ETOH Response Code Hypertension:: Patient communicates acknowledgment Heart Disease Risk Factors Patient Heart Disease Risk Factors Are:: Family history of heart disease < 65 years old and Previous cardiac event Recommendations Recommendations Include:: Educated family members of their risk Response Code Heart Disease Response Code:: Patient communicates acknowledgment Diabetes Risk Factors Patient Diabetes Risk Factors Are:: No documented hx of diabetes Metabolic Syndrome Recommendations Recommendations Include:: Reinforce compliance to risk factor modifications and Encouraged follow-up with Primary Care Physician Response Code Metabolic Syndrome Response Code:: Patient communicates acknowledgment Sedentary Recommendations Recommendations Include:: Aerobic exercise 5-7 times/week for 20-30 minutes continuously, Benefits of regular exercise and Monitored Outpatient Cardiac Rehab Response Code Sedentary Response Code:: Patient communicates acknowledgment and Needs reinforcement Stress Risk Factors Patient Stress Risk Factors Are:: Patient denies stress as a risk factor Recommendations Recommendations Include:: Identification of stressors, and assessment of coping skills and Stress management techniques Response Code Stress Response Code:: Patient communicates acknowledgment
--- NOTE | 2025-04-22 09:45 | CL.I_ITS ---
Patient Name: ISSA EYH Study Date: 02/27/2025 Performing: Deanna Escobar MD Ht: 69 inches 175.26 cm : 1965 Wt: 174.01 lbs 78.93 kg Age: 59 Gender: male BSA: 1.95 PROCEDURE(S) PERFORMED IC12-(45011/C9600)LOLIS W/WO PTCA, SINGLE CORONARY ARTERY CLINICAL PROFILE AND CO-MORBIDITIES Indications: Staged PCI for known CAD Heart Failure: None CONCLUSIONS Successful LOLIS to mRCA RECOMMENDATIONS DESCRIPTION OF PROCEDURE The patient arrived to the procedure lab. The risks and benefits of the procedure as well as a full description of our services here and current unavailability of surgical backup were fully explained to the patient and/or their significant other prior to the catheterization. The Timeout was completed, verifying the correct patient and procedure. The patient's procedural site was prepped and draped in the usual fashion. Local anesthetic was given subcutaneously to right radial region with Lidocaine 2%. Using a modified Seldinger technique, arterial access was obtained via the right radial artery, a 6Fr sheath was inserted.. AL 1.0 Guide catheter was inserted and engaged into the RCA. BMW Guide wire was advanced to the RCA. 4 x 15 Emerge Balloon catheter was inserted. Balloon catheter was advanced across lesion in the right coronary, mid. PTCA balloon inflated at 12 atms for 15 secs. 4.5 x 18 [employer] Drug Eluting stent was advanced across the lesion in the right coronary, mid. Angiogram performed post stent deployment. The arterial sheath was pulled and a TR Band was applied for hemostasis. 11 air INTERVENTION INFORMATION LESION SITE: RCA (Mid) Lesion Complexity: High/C, chronic total occlusion: No, lesion at bifurcation: No, thrombus present: No, lesion length: 15 mm, culprit lesion: Yes, Previously treated lesion: No Pre Stenosis: 80 % Pre intervention NORRIS flow: 3 PROCEDURE: Drug Eluting Stent with pre dilatation. Post Stenosis: 0 % Post intervention NORRIS flow: 3 Lesion Devices: Robles .014 190cm BMW Milton Straight Cordis 6 Fr AL1.0 100cm Guide Catheter Esdras Sci EMERGE MR 4.00x15 BALLOON Medtronic 4.5 x 18 [facility] FRONTIER LOLIS COMPLICATIONS No Complications PROCEDURE MEDICATIONS Fentanyl 50 mcg IV Versed 1 mg IV Oxygen: 2 L/min via nasal cannula Heparin given IA 02/27/2025 10:26:49 Heparin 3000 unit(s) IV 02/27/2025 10:28:40 Verapamil 2.5mg, Ntg 100mcgs, 3000 units of Heparin given IA 02/27/2025 10:26:49 SUMMARY OF HEMODYNAMIC DATA Time AIR REST ECG 08:42:12 AO 77/55 (65) SA 10:29:59 Signed By Deanna Escobar MD On 02/27/2025 11:13:17 Deanna Escobar MD
== END 2025-02-27 14:10 | disposition home or self-care (01) ==
PROVIDERS: Nurse Practitioner Family; Referring Provider Specialist; Visit Provider Specialist
DX: Z95.5 Presence of coronary angioplasty implant and graft (principal); F20.9 Schizophrenia, unspecified; I25.5 Ischemic cardiomyopathy; I25.2 Old myocardial infarction; B19.20 Unspecified viral hepatitis C without hepatic coma; E66.3 Overweight; Z87.891 Personal history of nicotine dependence; Z68.25 Body mass index [BMI] 25.0-25.9, adult; Z79.899 Other long term (current) drug therapy; Z79.82 Long term (current) use of aspirin
CPT/HCPCS: 92928; 36415; 80048; 85025; 93005; 99152; 99153; C1874; Q9967; C1725; C1769; C1887; C1894; C9600

== ENCOUNTER → 2025-04-22 | Outpatient (CLI) | payer MEDICAID, SELFPAY ==
[2025-04-22 12:51] LABS: Hematocrit 45.4 % (40-54); Hemoglobin 16.2 g/dL (13.0-16.5); Immature Granulocytes Count 0.030 X10^3/uL (0.0-0.0); Mean Corp Hgb Conc 35.7 g/dL (32-36); Mean Corpuscular Volume 87.8 fL (80-94); Mean Platelet Vol. 10.0 fl (6.2-12.0); NRBC Flagged by Analyzer 0 % (0-5); Platelet Count 215 K/mm3 (150-450); RBC Distribution Width CV 13.4 % (11.6-14.6); RBC Distribution Width SD 43.6 fl (35.1-43.9); Red Blood Count 5.17 M/mm3 (4.6-6.2); White Blood Count 12.7 K/mm3 (4.4-11.0)
[2025-04-22 13:58] LABS: Vitamin B12 475 pg/mL (180-914); Vitamin D,25 Hydroxy 18.6 ng/mL (30-100)
[2025-04-24 15:08] LABS: ANTINUCLEAR ANTIBODIES DIRECT Negative (Negative)
[2025-04-28 14:08] LABS: Vitamin B1, Thiamine 173.8 nmol/L (66.5-200.0)
== END | disposition home or self-care (01) ==
LOC: LAB 11:54
PROVIDERS: Referring Provider Nurse Practitioner Family; Visit Provider Nurse Practitioner Family
DX: R20.0 Anesthesia of skin (principal)
CPT/HCPCS: 36415; 82306; 82607; 83036; 84425; 84443; 85025; 85652; 86038; 86225

== ENCOUNTER → 2025-05-06 | Outpatient (CLI) | payer MEDICAID, SELFPAY ==
[2025-05-06 10:31] LABS: Hematocrit 44.3 % (40-54); Hemoglobin 15.6 g/dL (13.0-16.5); Immature Granulocytes Count 0.040 X10^3/uL (0.0-0.0); Mean Corp Hgb Conc 35.2 g/dL (32-36); Mean Corpuscular Volume 87.9 fL (80-94); Mean Platelet Vol. 9.5 fl (6.2-12.0); NRBC Flagged by Analyzer 0 % (0-5); Platelet Count 321 K/mm3 (150-450); RBC Distribution Width CV 13.2 % (11.6-14.6); RBC Distribution Width SD 42.5 fl (35.1-43.9); Red Blood Count 5.04 M/mm3 (4.6-6.2); White Blood Count 12.6 K/mm3 (4.4-11.0)
[2025-05-06 10:48] LABS: Prothrombin Time (Protime)PT. 14.2 SECONDS (11.7-14.9)
[2025-05-06 12:01] LABS: AST(SGOT) 26 U/L (<=37); Alanine Aminotransfer ALT/SGPT 35 U/L (<=46); Albumin, Serum 3.9 g/dL (3.5-5.0); Alkaline Phosphatase 111 U/L (40-129); Anion Gap 14 (5-15); BUN 15 mg/dL (4-19); BUN/Creat Ratio 22.6 RATIO (10-20); Calcium,Total 9.5 mg/dL (7.6-11.0); Carbon Dioxide 22.4 mmol/L (21.0-32.0); Chloride 105 mmol/L (98-108); Cholesterol 109 mg/dL (<=200); Globulin 3.1 g/dL (2.2-4.2); Glucose 170 mg/dL (70-99); HIV Nonreactive (Nonreactive); Low Density Lipoprotein Calc. 46 mg/dL; Potassium 4.2 mmol/L (3.3-5.1); Triglycerides 114 mg/dL; Very Low Density Lipoprotein 23 mg/dL (5-40); cholesterol:hdl ratio screen 2.69
[2025-05-06 12:02] LABS: CRP < 3.00 mg/L (0.0-3.0)
[2025-05-08 16:09] LABS: GGTP 26 IU/L (0-65); HCV Quant. RNA PCR HCV Not Detected IU/mL (.)
== END | disposition home or self-care (01) ==
LOC: LAB 09:41
PROVIDERS: Referring Provider Internal Medicine; Visit Provider Internal Medicine
DX: I42.9 Cardiomyopathy, unspecified (principal); B18.2 Chronic viral hepatitis C; R73.09 Other abnormal glucose; R68.81 Early satiety; I25.5 Ischemic cardiomyopathy
CPT/HCPCS: 36415; 80053; 80061; 82105; 82977; 83036; 85025; 85610; 86140; 86703; 86706; 87522

== ENCOUNTER 2025-05-16 11:48 | Emergency (ER) | payer MEDICAID, SELFPAY ==
[2025-05-16 11:49] VITALS: BP 148/110; PULSE 102; RESP 18; TEMP 36.4; O2SAT 100; BMI 24.7
--- NOTE | 2025-05-16 12:17 | ED.RN ---
this rn witnessed pt leaving er room after dr. mays left room.
--- NOTE | 2025-05-16 12:18 | EX.ED.VIS.EY ---
HPI History of Present Illness Chief Complaint: Eye Problem Detail of Chief Complaint: Concern for eye infection Informant: patient Narrative Narrative: Patient presents to the emergency department concern for infection in his eyes. He tells me that 3 years ago he got some salt grinder grit into his right eye and then when he was irrigating it dripped into his left eye. He was seen by ophthalmology at that time and they would put him on antibiotic ointment. He states that he called the people that make the salt grinder grit and he was told that he needed to be prescribed Busby ethyl ketone acetate. Patient states that he was then referred to some specialist up in [place] who checked his tear ducts and they were patent. Eye doctors told him he had dry eyes. He states that when he rubs his eyes he still gets some white discharge from his eyes. At times his had blurred vision. [facility] Medical History (Updated 05/16/25 @ 12:[address] Lana Gama, DO) Arteriosclerosis of coronary artery in patient with history of myocardial infarction (01/23/25) Schizophrenia Former tobacco use Hepatitis C Home Medications ?Medication ?Instructions ?Recorded ?Last Taken ?Type aspirin 81 mg tablet,delayed 81 mg PO BREAKFAST 90 days #90 tabs 02/21/25 02/27/25 Rx release atorvastatin 80 mg tablet 80 mg PO QHS 90 days #90 tabs 02/21/25 Unknown Rx carvedilol 3.125 mg tablet 3.125 mg PO BIDCM 90 days #180 tabs 02/21/25 02/27/25 Rx lisinopril 2.5 mg tablet 2.5 mg PO DAILY 90 days #90 tabs 02/21/25 02/27/25 Rx ticagrelor 90 mg tablet (Brilinta) 90 mg PO BID 90 days #180 tabs 02/21/25 02/27/25 Rx cholecalciferol (vitamin D3) 1,250 1,250 mcg PO QWEEK #13 caps 04/22/25 Unknown Rx mcg (50,000 unit) capsule metformin 500 mg tablet,extended 1,000 mg (2 x 500 mg) PO QDAY 30 04/22/25 Unknown Rx release 24 hr (Glucophage XR) days #60 tabs erythromycin 5 mg/gram (0.5 %) eye 1 applic ophthalmic (eye) DAILY 04/24/25 Unknown Rx ointment PRN eye irritation #3.5 grams Allergy/AdvReac Type Severity Reaction Status Date / Time No Known Allergies Allergy Verified 05/16/25 11:49 Family History Father CAD (coronary artery disease) Heart disease Hypertension Myocardial infarction Brother Myocardial infarction Hypertension Heart disease CAD (coronary artery disease) Mother No problems noted. Other STEMI (ST elevation myocardial infarction) Surgical History Stented coronary artery (02/27/25) History of tonsillectomy and adenoidectomy History of appendectomy H/O skin graft History of cholecystectomy Social History (Updated 05/16/25 @ 11:53 by Charo Antunez) household members: none housing: house Smoking Status: Former smoker how long ago did patient quit smoking: Quit ~ 5 yrs prior, smoked ~ 1/2 ppd since youth until quit. alcohol intake: former details: Notes previous intermittent EtOH use, not heavy, currently no drinking. substance use type: other details: Denies substance abuse but chart reported history of Hepatitis C. ROS ROS ED Review of Systems ROS Unobtainable: other Constitutional Constitutional ED: Reports lethargy; Denies chills, fever(s), sweats or weight loss Eyes Eyes: Reports blurry vision and other Details: Drainage from eyes ; Denies change in vision or diplopia ENT ENT ED: Denies rhinorrhea or sore throat Cardiovascular Cardiovascular: Denies chest pain, orthopnea or racing heartbeat Respiratory/Chest Respiratory/Chest: Denies cough, dyspnea, dyspnea on exertion, orthopnea or sputum Gastrointestinal Gastrointestinal: Denies abdominal pain, diarrhea, nausea or vomiting Genitourinary Genitourinary ED: Denies dysuria, hematuria or urinary frequency Musculoskeletal Musculoskeletal: Denies arthralgias, back pain, myalgias or neck pain Integumentary Denies abscess, Abrasions or rash Neurologic Neurologic: Denies headache(s) or weakness Psychiatric Psychiatric: Denies anxiety, depression or suicidal thoughts Endocrine Endocrinology: Denies polydipsia, polyphagia or polyuria Hematologic/Lymphatic Hematologic/Lymphatic: Denies easy bleeding, easy bruising or lymphadenopathy Allergic/Immunologic Allergic/Immunologic ED: Denies mouth swelling, tongue swelling or urticaria EXAM Physical Exam Const Vital Signs: 05/16/25 11:49 Temperature 97.6 F L Temperature Source Oral Pulse Rate 102 H Respiratory Rate 18 Blood Pressure 148/110 H Blood Pressure Mean 122 Pulse Ox 100 Oxygen Delivery Method Room Air Positive well nourished and well developed General Appearance ED: well developed and NAD HEENT Reports TM's clear and moist mucous membranes normocephalic and atraumatic; Negative for trauma or tenderness Tympanic Membrane ED: Yes TM's clear Eyes PERRL and EOMs intact bilaterally Eyes Narrative: No conjunctival erythema. No foreign bodies noted to the eyes. Pupils were equal reactive to light bilaterally. Extraocular muscle movements were normal. There is no matting or crusting about the eye. General Eye ED: Negative for pale conjunctiva or scleral icterus Neck no lymphadenopathy, supple and no JVD General: Negative for tenderness Chest Wall inspection of chest normal and palpation of chest normal Chest: Negative for tenderness Resp normal respiratory effort and clear to auscultation bilaterally Effort and Inspection: Negative for respiratory distress or pain with movement Auscultation: Negative for rhonchi, wheezes or diminished lung sounds Cardio regular rate, regular rhythm, S1 normal heart sound, S2 normal heart sound and no murmurs Peripheral Pulses: pulses 2+ throughout GI normal to inspection, nondistended, normoactive bowel sounds, soft to palpation, non-tender, non-distended and no masses Back/Spine no CVA tenderness and no thoracic nor lumbar tenderness Extremity normal to inspection General Extremety ED: Negative for edema General Extremity: Negative for edema Neuro oriented x3, CN's II-XII intact bilaterally, no sensory deficits noted and gait normal Sensorium / Orientation: awake, alert, oriented to person, oriented to place and oriented to time Motor Exam: strength 5/5 throughout and strength abnormal Psych mental status grossly normal Skin no rashes or lesions noted and no wounds MDM MDM MDM Narrative Medical decision making narrative: Patient presents with odd complaint of concern for eye infection from 3 years ago. Has been evaluated by multiple eye specialists. Insisting that he wants something for his eyes Busby ethyl ketone acetate. I explained to them that I did not feel that he had an infection currently. I did look up the chemical the patient is referencing and there is no such chemical although he may be referring possibly to hydroxy ethyl acetate which is used in fragrances as well as research and synthesis to used in polymers and coatings as well as photo since the sizers. When I explained to the patient that I could not give him any such treatment or ointment he left the department. Patient does have history of schizophrenia. Discharge Plan Triage Chief Complaint: Eye Problem ED Provider: Lana Gama Dx/Rx/DC Orders Clinical Impression: Blurred vision Prescriptions: No Action aspirin 81 mg tablet,delayed release (DR/EC) 81 mg PO BREAKFAST 90 Days Qty: 90 3RF atorvastatin 80 mg tablet 80 mg PO QHS 90 Days Qty: 90 3RF carvedilol 3.125 mg tablet 3.125 mg PO BIDCM 90 Days Qty: 180 3RF lisinopril 2.5 mg tablet 2.5 mg PO DAILY 90 Days Qty: 90 3RF ticagrelor [Brilinta] 90 mg tablet 90 mg PO BID 90 Days Qty: 180 3RF metformin [Glucophage XR] 500 mg tablet extended release 24 hr 1,000 mg PO QDAY 30 Days Qty: 60 2RF cholecalciferol (vitamin D3) 1,250 mcg (50,000 unit) capsule 1,250 mcg PO QWEEK Qty: 13 3RF erythromycin 5 mg/gram (0.5 %) ointment 1 applic ophthalmic (eye) DAILY PRN (Reason: eye irritation) Qty: 3.5 0RF Primary Care Provider: Care Physician,No Primary Referrals: Care Physician,No Primary [Primary Care Provider] - Print Language: Austrian Disposition Disposition: Elopement
== END 2025-05-16 12:47 | disposition left against medical advice (07) ==
LOC: ED 12:25
PROVIDERS: Emergency Provider Emergency Medicine; Visit Provider Emergency Medicine
DX: H53.8 Other visual disturbances (principal); F20.9 Schizophrenia, unspecified; I42.9 Cardiomyopathy, unspecified; I25.10 Atherosclerotic heart disease of native coronary artery without angina pectoris; Z95.5 Presence of coronary angioplasty implant and graft; Z79.82 Long term (current) use of aspirin; Z79.899 Other long term (current) drug therapy; Z87.891 Personal history of nicotine dependence; B19.20 Unspecified viral hepatitis C without hepatic coma; R73.09 Other abnormal glucose; R68.81 Early satiety; I25.5 Ischemic cardiomyopathy
CPT/HCPCS: 76705; 76981; 93308; 99283; Q9957; A4216; C8924

== ENCOUNTER → 2025-05-16 | Outpatient (CLI) | payer MEDICAID, SELFPAY ==
--- NOTE | 2025-05-16 10:02 | US_ITS ---
PROCEDURE: ABD LIMITED W/ ELASTOGRAPHY REASON FOR EXAM: LIVER FIBROSIS COMPARISON: None. TECHNIQUE: Procedure Code: [id number] Modality: US Procedure: ABD LIMITED W/ ELASTOGRAPHY Right upper quadrant abdominal ultrasound. Malachi ElastQ Imaging shear wave elastography for non-invasive assessment of liver tissue stiffness. Malachi EPIQ Elite. FINDINGS: LIVER: Size: Unremarkable Length: 14.3 cm Echotexture: Coarsened Contour: Normal Lesions: None identified Elastography: EQI Med: 10.8 kPa EQI Med Darrius: 1.9 m/s IQR/Med: 11.6 %* GALLBLADDER: Questionable 6 mm x 6 mm x 3 mm gallstone. COMMON BILE DUCT: Normal measuring 3 mm . PANCREAS: Normal Visualized portions of the right kidney are unremarkable. No right upper quadrant ascites. The spleen is not enlarged. It measures 11.4 cm x 5.5 cm 5.5 cm. US/ABD Limited w/ Elastography IMPRESSION: Moderate hepatic fibrosis. Reference Values: SRU <1.37 m/s (5.7kPa): No to mild fibrosis 1.37 m/s - 2.2 m/s: Moderate to severe fibrosis >2.2 m/s (15kPa): Significant fibrosis / cirrhosis METAVIR Score F2 or higher: 1.34 m/s (5.7kPa) F3 or higher: 1.55 m/s (7.3kPa) F4: 1.80 m/s (10kPa) * If the IQR/Med is >30%, the variance in the measurements is a large and the a ccuracy of the measurement may be in question. Reading Location: [id number]
--- NOTE | 2025-05-16 10:02 | ECHOLC_ITS ---
Reason For Study Reason For Study: Isch CMP- Assess LV function Procedure This was a limited 2D transthoracic echocardiogram. The study was technically difficult. Exam performed in department. Left Ventricle Normal size and thickness. Severe LV systolic dysfunction with apical akinesis, severe hypokinesis of the inferior and anterior septum, mid to distal anterior akinesis. Estimated LVEF 20-25%. Stage I diastolic dysfunction. Possible small LV apical thrombus. Right Ventricle Normal right ventricle. Atria The left and right atria are normal. Mitral Valve Structurally normal. Tricuspid Valve Structurally normal tricuspid valve. Aortic Valve Trisinus/trileaflet aortic valve. Pulmonic Valve The pulmonic valve is not well visualized. Great Vessels Normal sized aortic root. Pericardium/Pleural No pericardial effusion. Medication 22 gauge I.V. with prn adaptor inserted into right arm. Diluted definity 3.0ml given slow IV push to enhance endocardial definition. MMode/2D Measurements & Calculations LVIDd: 5.4 cm IVSd: 0.71 cm Ao root diam: 3.1 cm LVIDs: 3.8 cm LVPWd: 0.89 cm RVDd: 2.9 cm FS: 30.5 % LAV(MOD-bp): 35.2 ml LVAd ap4: 39.4 cm2 LVAd ap2: 33.8 cm2 LAV(MOD-bp) Indexed: 18.4 ml/m2 LVLd ap4: 8.9 cm LVLd ap2: 8.2 cm LAV(MOD-sp2): 39.8 ml EDV(MOD-sp4): 141.4 ml EDV(MOD-sp2): 112.5 ml LAV(MOD-sp4): 27.8 ml EDV(sp4-el): 147.7 ml EDV(sp2-el): 117.5 ml LVAs ap4: 33.2 cm2 LVAs ap2: 27.7 cm2 LVLs ap4: 8.3 cm LVLs ap2: 7.6 cm ESV(MOD-sp4): 106.7 ml ESV(MOD-sp2): 84.7 ml ESV(sp4-el): 112.0 ml ESV(sp2-el): 85.3 ml EF(MOD-sp4): 24.5 % EF(MOD-sp2): 24.7 % EF(sp4-el): 24.2 % SV(MOD-sp4): 34.7 ml SV(MOD-sp2): 27.8 ml SV(sp4-el): 35.7 ml SI(MOD-sp4): 18.1 ml/m2 SI(MOD-sp2): 14.5 ml/m2 LA A4 area: 12.4 cm2 LA dimension(2D): 3.8 cm RA A4 area: 6.8 cm2 ECHO/Echo Limited w/Contrast Interpretation Summary Severe LV systolic dysfunction with apical akinesis, severe hypokinesis of the inferior and anterior septum, mid to distal anterior akinesis. Estimated LVEF 20-25%. Stage I diastolic dysfunction. Possible small LV apical thrombus. Recommend cardiac MRI for further evaluation . Ordering Physician: Geoffrey Ochoa Referring Physician: Geoffrey Ochoa Performed By: Pina Ballesteros RDCS
== END | disposition home or self-care (01) ==
LOC: CVS 09:59
PROVIDERS: Referring Provider Nurse Practitioner Family; Visit Provider Nurse Practitioner Family
DX: B19.20 Unspecified viral hepatitis C without hepatic coma (principal); I42.9 Cardiomyopathy, unspecified; R73.09 Other abnormal glucose; R68.81 Early satiety; I25.5 Ischemic cardiomyopathy
CPT/HCPCS: 76705; 76981; 93308; A4216; Q9957; C8924